=== PATIENT | female | born 1950 | race Caucasian/White ===

== ENCOUNTER 2020-09-26 09:51 | Outpatient (REF) | payer MEDICARE, MEDICAID, SELFPAY ==
--- NOTE | 2020-09-26 09:57 | MM_ITS ---
EXAMINATION: MM SCREENING DIGITAL BREAST TOMOSYNTHESIS, BILATERAL CLINICAL INFORMATION: Screening. Asymptomatic. The lifetime risk of breast cancer based on the Tyrer-Cuzick Model is 6%. COMPARISON: Mammography: 09/21/2019, 09/06/2018, 08/01/2017, 07/18/2016 TECHNIQUE: Digital breast tomosynthesis is performed in both the craniocaudal and mediolateral oblique views along with computer-aided detection (CAD). Synthesized 2D images are generated from the tomosynthesis. FINDINGS: There are scattered areas of fibroglandular density (ACR BI-RADS breast composition Category b). There are no significant masses, abnormal calcifications, or other abnormalities. Small low right axillary tail node again seen MLO view similar to prior studies. Skin contours are smooth. No significant changes. MM/MM tomosynthesis screening BI IMPRESSION: No mammographic evidence of malignancy. ASSESSMENT: BI-RADS 2: Benign RECOMMENDATION: Routine annual mammography screening. This patient's information was entered into a reminder system with a target due date for their next mammogram.
== END 2020-09-26 09:52 | disposition home or self-care (01) ==
LOC: HO.MAMMO 09:51
PROVIDERS: PCP Hospitalist; Visit Provider Hospitalist
DX: Z12.31 Encounter for screening mammogram for malignant neoplasm of breast (principal)
CPT/HCPCS: 77063; 77067

== ENCOUNTER 2020-11-18 08:00 | Outpatient (REF) | payer MEDICARE, MEDICAID, SELFPAY ==
[2020-11-18 09:29] LABS: Hematocrit 39.8 % (37-47); Hemoglobin 13.2 g/dl (12.0-16.0); Mean Corpuscular HGB Conc 33.2 g/dl (31.0-35.0); Mean Corpuscular Hemoglobin 31.7 pg (27.0-33.0); Mean Corpuscular Volume 95.4 fL (80-98); Mean Platelet Volume 10.2 fL (9.4-12.3); Platelet Count 217 X10*3/uL (160-400); Red Blood Count 4.17 X10*6/uL (4.20-5.50); Red Cell Distribution Width 12.8 % (11.0-16.0); White Blood Count 7.4 X10*3/uL (4.8-10.8)
== END 2020-11-18 08:01 | disposition home or self-care (01) ==
LOC: HO.LAB 08:00
PROVIDERS: PCP Hospitalist; Visit Provider Hospitalist
DX: D50.9 Iron deficiency anemia, unspecified (principal)
CPT/HCPCS: 36415; 85027

== ENCOUNTER 2021-07-06 07:12 | Outpatient (REF) | payer MEDICARE, MEDICAID, SELFPAY ==
[2021-07-06 07:55] LABS: Hematocrit 40.8 % (37-47); Hemoglobin 13.7 g/dl (12.0-16.0); Mean Corpuscular HGB Conc 33.6 g/dl (31.0-35.0); Mean Corpuscular Hemoglobin 32.9 pg (27.0-33.0); Mean Corpuscular Volume 98.1 fL (80-98); Mean Platelet Volume 10.8 fL (9.4-12.3); Platelet Count 183 X10*3/uL (160-400); Red Blood Count 4.16 X10*6/uL (4.20-5.50); Red Cell Distribution Width 12.6 % (11.0-16.0)
[2021-07-06 08:20] LABS: Alanine Aminotransferase 63 U/L (0-31); Albumin Level 4.2 g/dL (3.5-5.0); Alkaline Phosphatase 132 U/L (39-117); Anion Gap 13 (12-20); Aspartate Amino Transferase 58 U/L (5-31); Bilirubin Direct 0.3 mg/dL (0.0-0.5); Bilirubin Total 0.8 mg/dL (0.0-1.0); Blood Urea Nitrogen 24 mg/dL (9-16); Calcium 10.1 mg/dL (8.4-10.2); Carbon Dioxide 22 mmol/L (22-29); Chloride 106 mmol/L (96-108); Cholesterol 172 mg/dL; Estimated Glomerular Filt Rate > 60; Glucose Fasting 119 mg/dL (60-99); HDL Cholesterol 69 mg/dL; LDL Cholesterol Calculated 90 mg/dl; Potassium 4.3 mmol/L (3.3-5.1); Sodium 137 mmol/L (135-145); Total Protein 7.8 g/dL (6.5-8.0); Triglycerides 65 mg/dL
[2021-07-06 08:42] LABS: TSH reflex Free T4 5.07 uIU/mL (0.32-4.0)
[2021-07-06 09:15] LABS: Free T4 (Free Thyroxine) 1.14 ng/dL (0.71-1.85)
== END 2021-07-06 07:13 | disposition home or self-care (01) ==
LOC: HO.LAB 07:12
PROVIDERS: PCP Hospitalist; Visit Provider Hospitalist
DX: Z00.00 Encounter for general adult medical examination without abnormal findings (principal)
CPT/HCPCS: 36415; 80048; 80061; 80076; 84439; 84443; 85027

== ENCOUNTER 2021-07-13 08:15 | Outpatient (REF) | payer MEDICARE, MEDICAID, SELFPAY ==
[2021-07-13 12:05] LABS: Hematocrit 40.3 % (37-47); Hemoglobin 13.6 g/dl (12.0-16.0); Mean Corpuscular HGB Conc 33.7 g/dl (31.0-35.0); Mean Corpuscular Hemoglobin 33.2 pg (27.0-33.0); Mean Corpuscular Volume 98.3 fL (80-98); Mean Platelet Volume 10.9 fL (9.4-12.3); Platelet Count 213 X10*3/uL (160-400); Red Cell Distribution Width 12.4 % (11.0-16.0); White Blood Count 8.2 X10*3/uL (4.8-10.8)
[2021-07-13 12:26] LABS: Alanine Aminotransferase 43 U/L (0-31); Albumin Level 4.1 g/dL (3.5-5.0); Alkaline Phosphatase 104 U/L (39-117); Anion Gap 15 (12-20); Aspartate Amino Transferase 45 U/L (5-31); Bilirubin Direct 0.3 mg/dL (0.0-0.5); Bilirubin Total 0.6 mg/dL (0.0-1.0); Blood Urea Nitrogen 22 mg/dL (9-16); Calcium 9.9 mg/dL (8.4-10.2); Carbon Dioxide 23 mmol/L (22-29); Chloride 108 mmol/L (96-108); Estimated Glomerular Filt Rate > 60; Glucose Fasting 107 mg/dL (60-99); Potassium 5.1 mmol/L (3.3-5.1); Sodium 141 mmol/L (135-145); Total Protein 7.7 g/dL (6.5-8.0)
== END 2021-07-13 08:16 | disposition home or self-care (01) ==
LOC: HO.WFDLDS 08:15
PROVIDERS: Visit Provider Hospitalist
DX: Z00.00 Encounter for general adult medical examination without abnormal findings (principal)
CPT/HCPCS: 36415; 80053; 80076; 82248; 85027

== ENCOUNTER 2021-10-12 07:03 | Outpatient (REF) | payer MEDICARE, MEDICAID, SELFPAY ==
[2021-10-12 08:00] LABS: Anion Gap 12 (12-20); Blood Urea Nitrogen 22 mg/dL (9-16); Calcium 10.1 mg/dL (8.4-10.2); Carbon Dioxide 27 mmol/L (22-29); Chloride 107 mmol/L (96-108); Estimated Glomerular Filt Rate > 60; Glucose Fasting 127 mg/dL (60-99); Potassium 4.5 mmol/L (3.3-5.1); Sodium 141 mmol/L (135-145)
[2021-10-12 08:02] LABS: Troponin-I High Sensitivity 4.4 ng/L (<3.5-17.0)
== END 2021-10-12 07:04 | disposition home or self-care (01) ==
LOC: HO.LAB 07:03
PROVIDERS: Absent Provider Family Medicine; PCP Hospitalist; Visit Provider Hospitalist
DX: Z00.00 Encounter for general adult medical examination without abnormal findings (principal); R00.1 Bradycardia, unspecified
CPT/HCPCS: 36415; 80048; 84484

== ENCOUNTER 2021-10-28 07:26 | Outpatient (REF) | payer MEDICARE, MEDICAID, SELFPAY ==
--- NOTE | ~2021-10-28 | MM_ITS ---
EXAMINATION: MM SCREENING DIGITAL BREAST TOMOSYNTHESIS, BILATERAL CLINICAL INFORMATION: Screening. Asymptomatic. The lifetime risk of breast cancer based on the Tyrer-Cuzick Model is 4%. COMPARISON: Mammography: 09/26/2020, 09/21/2019, 09/06/2018 TECHNIQUE: Digital breast tomosynthesis is performed in both the craniocaudal and mediolateral oblique views along with computer-aided detection (CAD). Synthesized 2D images are generated from the tomosynthesis. Additional left MLO view is provided. FINDINGS: There are scattered areas of fibroglandular density (ACR BI-RADS breast composition Category b). There are no significant masses, abnormal calcifications, or other abnormalities. No significant changes from prior studies. MM/MM tomosynthesis screening BI IMPRESSION: No mammographic evidence of malignancy. ASSESSMENT: BI-RADS 1: Negative RECOMMENDATION: Routine annual mammography screening. This patient's information was entered into a reminder system with a target due date for their next mammogram.
== END 2021-10-28 07:27 | disposition home or self-care (01) ==
LOC: HO.MAMMO 07:26
PROVIDERS: Visit Provider Hospitalist
DX: Z12.31 Encounter for screening mammogram for malignant neoplasm of breast (principal)
CPT/HCPCS: 77063; 77067

== ENCOUNTER 2022-04-08 06:28 | Outpatient (REF) | payer MEDICARE, MEDICAID, SELFPAY ==
[2022-04-08 07:54] LABS: Cholesterol 165 mg/dL; HDL Cholesterol 59 mg/dL; LDL Cholesterol Calculated 96 mg/dl; Triglycerides 52 mg/dL
[2022-04-08 08:11] LABS: Estimated Average Glucose 123 mg/dL; Hemoglobin A1c % 5.9 %
[2022-04-08 08:18] LABS: TSH reflex Free T4 3.89 uIU/mL (0.32-4.0)
== END 2022-04-08 06:29 | disposition home or self-care (01) ==
LOC: HO.LAB 06:28
PROVIDERS: PCP Hospitalist; Visit Provider Hospitalist
DX: E03.9 Hypothyroidism, unspecified (principal); I10 Essential (primary) hypertension; E11.9 Type 2 diabetes mellitus without complications
CPT/HCPCS: 36415; 80061; 83036; 84443

== ENCOUNTER 2022-08-16 07:56 | Outpatient (REF) | payer MEDICARE, MEDICAID, SELFPAY ==
[2022-08-16 10:36] LABS: Appearance Urine Clear; Color Urine Yellow; Glucose Urine UA Negative (Negative); Leukocyte Esterase Urine Trace (Negative); Nitrite Urine Negative (Negative); PH 6.5 (5.0-9.0); UMIC TRIGGER UA YES; Urine Blood Negative (Negative); Urine Ketones Negative (Negative); Urine Protein Negative (Neg-Trace)
[2022-08-16 10:44] LABS: Bacteria Urine None Seen (None Seen); Hyaline Casts Urine 0-2 /LPF (0-2); RBC Urine 0-2 /HPF (0-2); Squamous Epithelial Cell Urine 0-2 /HPF (0-2); WBC Urine 0-5 /HPF (0-5)
[2022-08-16 10:46] LABS: Hematocrit 40.2 % (37.0-47.0); Hemoglobin 13.3 g/dl (12.0-16.0); Mean Corpuscular HGB Conc 33.1 g/dl (31.0-35.0); Mean Corpuscular Hemoglobin 32.4 pg (27.0-33.0); Mean Platelet Volume 10.8 fL (9.4-12.3); Platelet Count 208 X10*3/uL (160-400); Red Cell Distribution Width 12.1 % (11.0-16.0); White Blood Count 9.3 X10*3/uL (4.8-10.8)
[2022-08-16 11:21] LABS: Alanine Aminotransferase 48 U/L (0-31); Albumin Level 4.1 g/dL (3.5-5.0); Alkaline Phosphatase 109 U/L (39-117); Anion Gap 13 (12-20); Aspartate Amino Transferase 41 U/L (5-31); Bilirubin Total 0.6 mg/dL (0.0-1.0); Blood Urea Nitrogen 19 mg/dL (9-16); Carbon Dioxide 25 mmol/L (22-29); Chloride 103 mmol/L (96-108); Cholesterol 162 mg/dL; Estimated Glomerular Filt Rate > 60; Glucose Fasting 129 mg/dL (60-99); HDL Cholesterol 65 mg/dL; LDL Cholesterol Calculated 88 mg/dl; Potassium 4.2 mmol/L (3.3-5.1); Sodium 137 mmol/L (135-145); TSH reflex Free T4 3.82 uIU/mL (0.32-4.0); Total Protein 7.6 g/dL (6.5-8.0); Triglycerides 49 mg/dL
== END 2022-08-16 07:57 | disposition home or self-care (01) ==
LOC: HO.10HDL 07:56
PROVIDERS: Visit Provider Hospitalist
DX: Z00.00 Encounter for general adult medical examination without abnormal findings (principal)
CPT/HCPCS: 36415; 80053; 80061; 81001; 84443; 85027

== ENCOUNTER 2022-09-27 09:27 | Outpatient (REF) | payer MEDICARE, MEDICAID, SELFPAY ==
[2022-09-27 13:27] LABS: Alanine Aminotransferase 45 U/L (0-31); Albumin Level 4.4 g/dL (3.5-5.0); Alkaline Phosphatase 106 U/L (39-117); Aspartate Amino Transferase 44 U/L (5-31); Bilirubin Direct 0.2 mg/dL (0.0-0.5); Bilirubin Total 0.5 mg/dL (0.0-1.0); Total Protein 7.9 g/dL (6.5-8.0)
== END 2022-09-27 09:28 | disposition home or self-care (01) ==
LOC: HO.10HDL 09:27
PROVIDERS: Visit Provider Hospitalist
DX: R79.89 Other specified abnormal findings of blood chemistry (principal)
CPT/HCPCS: 36415; 80076

== ENCOUNTER 2022-11-01 08:06 | Outpatient (REF) | payer MEDICARE, MEDICAID, SELFPAY ==
--- NOTE | ~2022-11-01 | MM_ITS ---
EXAMINATION: MM SCREENING DIGITAL BREAST TOMOSYNTHESIS, BILATERAL CLINICAL INFORMATION: Screening. Asymptomatic. The lifetime risk of breast cancer based on the Tyrer-Cuzick Model is 4.0%. COMPARISON: Mammography: October 28, 2021 and studies dating back to July 18, 2016 TECHNIQUE: Digital breast tomosynthesis is performed in both the craniocaudal and mediolateral oblique views along with computer-aided detection (CAD). Synthesized 2D images are generated from the tomosynthesis. FINDINGS: There are scattered areas of fibroglandular density (ACR BI-RADS breast composition Category b). There are no significant masses, abnormal calcifications, or other abnormalities. MM/MM tomosynthesis screening BI IMPRESSION: No significant changes ASSESSMENT: BI-RADS 1: Negative RECOMMENDATION: Routine annual mammography screening. This patient's information was entered into a reminder system with a target due date for their next mammogram.
== END 2022-11-01 08:07 | disposition home or self-care (01) ==
LOC: HO.MAMMO 08:06
PROVIDERS: PCP Hospitalist; Visit Provider Hospitalist
DX: Z12.31 Encounter for screening mammogram for malignant neoplasm of breast (principal)
CPT/HCPCS: 77063; 77067

== ENCOUNTER 2023-04-25 08:28 | Outpatient (AMB) | payer MEDICARE, MEDICAID, SELFPAY ==
[2023-04-25 08:40] VITALS: BP 116/64; PULSE 36; RESP 12; TEMP 36.5; O2SAT 99; BMI 19.5
--- NOTE | 2023-04-25 08:40 | A.OFFPC_ITS ---
Vital Signs 04/25/23 08:40 Height 4 ft 8 in Weight 87 lb 2 oz BMI 19.5 BP 116/64 Blood Pressure Location Rt brachial Position Sitting Respiration 12 Pulse 36 L Pulse Source Pulse Oximeter Temp 97.7 F Temp Source Temporal Artery Scan Pulse Oximetry (%) 99 Oxygen Delivery Method Room Air Intake Visit Reasons: 6M Follow up for hypothyroidiem & HTN Meter Changes Records Clerk Required: No Accompanied by: Sister Allergies No Known Allergies Allergy (Verified 04/25/23 08:48) Tobacco use date assessed: 04/25/23 Fall risk assessment: No Falls in past year Last assessed Fall Risk: 04/25/23 Dental Screening Dental Screen Date: 04/25/23 Did you have a dental visit in the last 12 months?: No Did you have a dental problem in the last 6 months where you did not have access to dental care?: No Was dental information given to patient?: Yes HPI HPI Comments History of Present Illness Details 72-year-old female, accompanied by her sister, presents for hypertension and hypothyroidism follow-up She notes that she has been taking her medications as prescribed No concerns or acute symptoms PFSH Medical History No pertinent past medical history Surgical History History of tonsillectomy and adenoidectomy Family History Father No problems noted. Mother Lung cancer Sister In good health Social History Housing: House Patient Tobacco Use Status: Never used Tobacco e-Cigarette/Vaping Use: Never Used service: No Current occupational status: retired Current occupational exposures/hazards: No Cognitive needs: Yes Hearing needs: No Vision needs: Yes Questionnaire PHQ-9 Over the last 2 weeks, how often have you been bothered by any of the following problems? 1. Little interest or pleasure in doing things: not at all 2. Feeling down, depressed, or hopeless: not at all 3. Trouble falling or staying asleep, or sleeping too much: not at all 4. Feeling tired or having little energy: several days 5. Poor appetite or overeating: not at all 6. Feeling bad about yourself - or that you are a failure or have let yourself or your family down: not at all 7. Trouble concentrating on things, such as reading the newspaper or watching television: several days 8. Moving or speaking so slowly that other people could have noticed. Or the opposite - being so fidgety or restless that you have been moving around a lot more than usual: not at all 9. Thoughts that you would be better off or of hurting yourself in some way: not at all Total score: 2 Depression Screening Interpretation: Negative Source: Developed by Drs. Leonid Oseguera, Lorena Caceres, Richard Leahy and colleagues, with an educational casey from [employer]. Thrive Questionnaire Date Thrive assessed: 04/25/23 I am a: Patient What is your living situation today?: I have a steady place to live Within the past 12 months, did the food you bought not last and you didn't have the money to get more?: Never true Within the past 12 months, did you worry whether your food would run out before you got money to buy more?: Never true Do you have trouble paying for medicines?: No Do you have trouble getting transportation to medical appointments?: No Do you have trouble paying your heating and electricity bill?: No Do you have trouble taking care of your child, family member or friend?: No Do you have trouble with day-to-day activities such as bathing, preparing meals, shopping, managing finances, etc.?: No Are you currently unemployed and looking for a job?: No Are you interested in more education?: No Please select the resources that you would like help with: None AUDIT C Alcohol Use Questionnaire (AUDIT-C) 1. How often do you have a drink containing alcohol?: Never 3. How often do you have six or more drinks on one occasion?: Never Total Score: 0 CARLOS-7 AMB Questionnaire CARLOS-7 Date CARLOS - 7 assessed: 04/25/23 Feeling nervous, anxious, or on edge: 1 = Several days Not being able to stop or control worryin = Several days Worrying too much about different things: 0 = Not at all Trouble relaxin = Not at all Being so restless that it is hard to sit still: 0 = Not at all Becoming easily annoyed or irritable: 0 = Not at all Feeling afraid as if something awful might happen: 0 = Not at all Total CARLOS-7 score (0-4 normal; 5-9 mild; 10-14 moderate; 15-21 severe): 2 Source: Developed by Drs. Leonid Oseguera, Lorena Caceres, Richard Leahy and colleagues, with an educational casey from [employer]. Review of Systems Const Details: Const Denies chills, Denies fatigue, Denies fever(s), Denies headache(s) and Denies weakness ENT Denies dizziness and Denies headache(s) Card Denies chest pain, Denies lightheadedness, Denies dyspnea and Denies other (Palpitations) Resp Denies cough, Denies dyspnea, Denies wheezing and Denies other ( shortness of breath) GI Denies abdominal pain, Denies melena, Denies hematochezia, Denies change in bowel habits, Denies dyspepsia and Denies nausea Denies hematuria and Denies dysuria Musc Denies abnormal gait, Denies myalgias, Denies arthralgias, Denies numbness and Denies tingling Skin/Breast Denies rash, Denies unusual bruising and Denies wounds Neuro Denies abnormal gait, Denies dizziness, Denies headache(s), Denies memory loss, Denies numbness, Denies Sensory deficit (Neuro), Denies tingling and Denies weakness Psych Denies anxiety and Denies depression Endo Denies fatigue Aller/Immun Denies wheezing Physical exam (Primary Care) Vital Signs: Last Vital Signs Temp 97.7 F 04/25/23 08:40 Pulse 36 L 04/25/23 08:40 Resp 12 04/25/23 08:40 BP 116/64 04/25/23 08:40 Pulse Ox 99 04/25/23 08:40 Oxygen Delivery Method Room Air 04/25/23 08:40 BMI result Body Mass Index 19.5 Tobacco/Smoking Status: Tobacco use Status Tobacco use date assessed 04/25/23 04/25/23 08:51 Patient Tobacco Use Status Never used Tobacco 04/25/23 08:51 e-Cigarette/Vaping Use Never Used 04/25/23 08:51 PHQ-9: PHQ-9 Score PHQ-9: Total score 2 04/25/23 11:11 Depression Screening Interpretation: Negative Thrive Assessment: Date of Thrive Assessment Date Thrive assessed 04/25/23 04/25/23 08:51 Const Other: General: no acute distress and well developed Nutritional Appearance: well nourished Orientation/consciousness: patient oriented x3 [facility] Head: Yes normocephalic and Yes atraumatic Eyes General: appearance normal, both eyes and all related structures Pupils: Equal, round and reactive pupils present EOM: EOMs intact bilaterally Resp Effort & Inspection: normal respiratory effort Auscultation: clear to auscultation bilaterally Cardio Rate: regular rate Rhythm: regular rhythm Heart sounds: S1 normal heart sound present, S2 normal heart sound present, no gallops, no murmurs and no rubs GI Palpation (GI): No Abdominal aortic bruit present, Soft to palpation, nontender, No hepatosplenomegaly present and No Rebound tenderness present Auscultation: normal bowel sounds General: Yes no CVA tenderness Back/Spine/Pelvis Back: no CVA tenderness Cervical Spine: cervical ROM normal and No Cervical spine tenderness Thoracic/Lumbar Spine: thoraco-lumbar ROM normal, No pain with thoraco-lumbar ROM, No thoracic spinal tenderness and No lumbar spinal tenderness Extrem General: Yes normal to inspection, No edema and No calf tenderness Skin General: warm and dry. Normal skin color. Normal skin turgor Lesions: no lesions Rashes: no rashes Trauma: no lacerations or abrasions Wounds: no wounds Nails: normal Neuro General: patient oriented x3, gait normal and no focal neuro deficit Cranial nerves: Yes Equal, round and reactive pupils present Cognition (Neuro): normal cognition Gait exam (Neuro): Normal gait present Sensory Exam: No Sensory deficit (Neuro) Psych Affect: normal affect Assessment and Plan Assessment & Plan (1) Hypertension, essential: Code(s): I10 - Essential (primary) hypertension Plan: Her blood pressure is controlled, 116/64, within goal of less than 130/80 Continue to take lisinopril as prescribed Low-sodium diet encouraged Follow-up with PCP in 6 months or return sooner with symptoms or concerns Verbalized understanding and agreed with treatment plan. (2) Hypothyroidism (acquired): Code(s): E03.9 - Hypothyroidism, unspecified Plan: Her TSH in August 2022 was normal, 3.82 TSH/T4 ordered. Encouraged to get blood work done Continue to take levothyroxine as prescribed Will review lab results and make changes to her care plan if warranted Verbalized understanding and agreed with treatment plan. (3) Well controlled type 2 diabetes mellitus: Code(s): E11.9 - Type 2 diabetes mellitus without complications Plan: A1c ordered LDL on 08/2023 was 65, within goal of less than 100 Continue to take metformin and simvastatin as prescribed ADA diet and routine exercise encouraged Will review results and make changes to her care plan if warranted Follow-up with PCP in 6 months or return sooner with symptoms or concerns Verbalized understanding and agreed with treatment plan Orders: Orders TSH reflex Free T4 Today E03.9 - Hypothyroidism, unspecified Hemoglobin A1c Today E11.9 - Type 2 diabetes mellitus without complications Coding Level of Care Code Est Pt Level 3 (58909) Diagnoses Hypertension, essential I10 Hypothyroidism (acquired) E03.9 Well controlled type 2 diabetes mellitus E11.9 Time Spent (min) 25
== END 2023-04-25 09:27 | disposition home or self-care (01) ==
PROVIDERS: PCP Hospitalist; Visit Provider Nurse Practitioner Family
DX: I10 Essential (primary) hypertension (principal); E03.9 Hypothyroidism, unspecified; E11.9 Type 2 diabetes mellitus without complications
CPT/HCPCS: 99213

== ENCOUNTER 2023-04-25 09:29 | Outpatient (REF) | payer MEDICARE, MEDICAID, SELFPAY ==
[2023-04-25 12:11] LABS: Estimated Average Glucose 114 mg/dL; Hemoglobin A1c % 5.6 %
[2023-04-25 12:34] LABS: TSH reflex Free T4 3.39 uIU/mL (0.32-4.0)
== END 2023-04-25 09:30 | disposition home or self-care (01) ==
LOC: HO.WFDLDS 09:29
PROVIDERS: Visit Provider Nurse Practitioner Family
DX: E03.9 Hypothyroidism, unspecified (principal); E11.9 Type 2 diabetes mellitus without complications
CPT/HCPCS: 36415; 83036; 84443

== ENCOUNTER 2023-09-22 08:21 | Outpatient (AMB) | payer MEDICARE, MEDICAID, SELFPAY ==
[2023-09-22 08:33] VITALS: BP 112/70; PULSE 40; O2SAT 100; BMI 20.6
--- NOTE | 2023-09-22 08:33 | A.OFFPC_ITS ---
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 Required: No Allergies No Known Allergies Allergy (Verified 09/22/23 08:41) Medication List - Last Reconciled 09/22/23 by QUIRINO Bennett aspirin 81 mg PO DAILY cholecalciferol (vitamin D3) 25 mcg PO DAILY levothyroxine 25 mcg PO DAILY lisinopril 5 mg PO DAILY metformin ER 750 mg PO DAILY 3 months multivitamin with iron (Tab-A-Joselo/Iron tablet) 1 tab PO DAILY omega-3 fatty acids-fish oil 300-1,000 mg 1 cap PO DAILY simvastatin 40 mg PO DAILY Tobacco use date assessed: 09/22/23 Fall risk assessment: No Falls in past year Last assessed Fall Risk: 09/22/23 Dental Screening Dental Screen Date: 09/22/23 Did you have a dental visit in the last 12 months?: No Did you have a dental problem in the last 6 months where you did not have access to dental care?: No HPI Integration Architect Transfer Of Care (HTN) HPI Details Patient is a 73-year-old female presents today to transfer care from Dr. Cullen. Medical history significant for hypertension, diabetes, hypothyroidism, low vitamin-D level. Patient reports that she is compliant with medications and denies side effects. Denies concerns at this visit. Patient is accompanied by her sister Jody. [facility] Medical History No pertinent past medical history Surgical History History of tonsillectomy and adenoidectomy Family History Father No problems noted. Mother Lung cancer Sister In good health Social History Housing: House Patient Tobacco Use Status: Never used Tobacco e-Cigarette/Vaping Use: Never Used service: No Current occupational status: retired Current occupational exposures/hazards: No Cognitive needs: Yes Hearing needs: No Vision needs: Yes Questionnaire PHQ-9 Over the last 2 weeks, how often have you been bothered by any of the following problems? 1. Little interest or pleasure in doing things: not at all 2. Feeling down, depressed, or hopeless: not at all 3. Trouble falling or staying asleep, or sleeping too much: not at all 4. Feeling tired or having little energy: several days 5. Poor appetite or overeating: not at all 6. Feeling bad about yourself - or that you are a failure or have let yourself or your family down: not at all 7. Trouble concentrating on things, such as reading the newspaper or watching television: several days 8. Moving or speaking so slowly that other people could have noticed. Or the opposite - being so fidgety or restless that you have been moving around a lot more than usual: not at all 9. Thoughts that you would be better off or of hurting yourself in some way: not at all Total score: 2 Depression Screening Interpretation: Negative Depression Screening Done: Yes 10910 - PHQ-9 Billing: Yes Source: Developed by Drs. Leonid Oseguera, Lorena Caceres, Richard Leahy and colleagues, with an educational casey from [employer]. Thrive Questionnaire Date Thrive assessed: 04/25/23 AUDIT C Alcohol Use Questionnaire (AUDIT-C) 1. How often do you have a drink containing alcohol?: Never 3. How often do you have six or more drinks on one occasion?: Never Total Score: 0 Score Reviewed/Action Taken: No CARLOS-7 AMB Questionnaire CARLOS-7 Date CARLOS - 7 assessed: 09/22/23 Feeling nervous, anxious, or on edge: 1 = Several days Not being able to stop or control worryin = Several days Worrying too much about different things: 0 = Not at all Trouble relaxin = Not at all Being so restless that it is hard to sit still: 0 = Not at all Becoming easily annoyed or irritable: 0 = Not at all Feeling afraid as if something awful might happen: 0 = Not at all Total CARLOS-7 score (0-4 normal; 5-9 mild; 10-14 moderate; 15-21 severe): 2 Source: Developed by Drs. Leonid Oseguera, Lorena Caceres, Richard Leahy and colleagues, with an educational casey from [employer]. CARLOS-7 Assessment Billing CARLOS-7 Assessment Tool: CARLOS-7 Assessment 14200 Review of Systems Const Denies body aches, Denies chills, Denies fever(s) and Denies headache(s) Eyes Denies change in vision ENT Denies dizziness, Denies otalgia, Denies headache(s), Denies nasal discharge, Denies sinus pain and Denies sore throat Card Denies chest pain, Denies edema, Denies lightheadedness and Denies dyspnea Resp Denies cough, Denies dyspnea and Denies wheezing GI Denies abdominal pain, Denies constipation, Denies diarrhea, Denies nausea and Denies vomiting Denies dysuria Musc Denies myalgias Skin/Breast Denies rash Neuro Denies dizziness and Denies headache(s) Aller/Immun Denies wheezing Physical exam (Primary Care) Vital Signs: Last Vital Signs Pulse 40 L 09/22/23 08:33 BP 112/70 09/22/23 08:33 Pulse Ox 100 09/22/23 08:33 Oxygen Delivery Method Room Air 09/22/23 08:33 BMI result Body Mass Index 20.6 Tobacco/Smoking Status: Tobacco use Status Tobacco use date assessed 09/22/23 09/22/23 08:36 Patient Tobacco Use Status Never used Tobacco 09/22/23 08:36 e-Cigarette/Vaping Use Never Used 09/22/23 08:36 PHQ-9: PHQ-9 Score PHQ-9: Total score 2 09/22/23 08:41 Depression Screening Interpretation: Negative Thrive Assessment: Date of Thrive Assessment Date Thrive assessed 04/25/23 09/22/23 08:36 Const General: cooperative and no acute distress Orientation/consciousness: patient oriented x3 HENMT Other: Bilateral TM partially obstructed by cerumen, visualized TMs normal Head: Yes normocephalic and Yes atraumatic Face and sinus: Yes sinuses nontender Mouth: oropharynx normal and moist mucous membranes Throat: Yes posterior oropharynx normal Eyes General: appearance normal, both eyes and all related structures Pupils: Equal, round and reactive pupils present EOM: EOMs intact bilaterally Neck Neck: Yes normal visual inspection, Yes full ROM and Yes no lymphadenopathy Thyroid: Thyroid normal Resp Effort & Inspection: normal respiratory effort and able to speak in complete sentences Auscultation: clear to auscultation bilaterally, no crackles, no rales, no rhonchi and no wheezes Cardio Rate: regular rate Rhythm: regular rhythm Heart sounds: S1 normal heart sound present, S2 normal heart sound present and no murmurs GI Palpation (GI): Soft to palpation, not firm, nontender, no guarding, not rigid and no hepatosplenomegaly Auscultation: normal bowel sounds General: No CVA tenderness Back/Spine/Pelvis Back: No CVA tenderness Skin General skin exam: no rashes or lesions noted Neuro General: patient oriented x3 Cranial nerves: Yes Equal, round and reactive pupils present Gait exam (Neuro): Normal gait present Extrem Other: Left lower extremity with trace edema General: Yes full ROM Results AMB Hemoglobin A1c AMB Hemoglobin A1c 6.1 % Last Edit by MAYCO Astudillo on 09/22/23 08:49 Assessment and Plan Assessment & Plan (1) Vitamin D deficiency: Code(s): E55.9 - Vitamin D deficiency, unspecified Plan: Continue vitamin-D Will check level (2) Hypothyroidism (acquired): Code(s): E03.9 - Hypothyroidism, unspecified Plan: Continue levothyroxine Blood work ordered (3) Well controlled type 2 diabetes mellitus: Code(s): E11.9 - Type 2 diabetes mellitus without complications Plan: A1c 6.1 today, goal less than 7 Continue metformin Low-carbohydrate diet Patient will call for diabetic eye exam (4) Hypertension, essential: Code(s): I10 - Essential (primary) hypertension Plan: Goal BP equal or less than 140/90 Continue lisinopril Low-sodium diet Plan Follow-up in 6 months or sooner as needed Orders: Orders AMB Hemoglobin A1c Today Z13.9 - Encounter for screening, unspecified QUIRINO Bennett Lipid Panel Today E11.9 - Type 2 diabetes mellitus without complications QUIRINO Bennett Microalbumin, Random (w Creat) Today E11.9 - Type 2 diabetes mellitus without complications QUIRINO Bennett Vitamin D 25-OH Total Today E55.9 - Vitamin D deficiency, unspecified QUIRINO Bennett TSH reflex Free T4 Today E03.9 - Hypothyroidism, unspecified QUIRINO Bennett Comprehensive [place]. Panel Fast Today E11.9 - Type 2 diabetes mellitus without complications QUIRINO Bennett Complete Blood Count Auto Diff Today I10 - Essential (primary) hypertension QUIRINO Bennett Medications: Resumed simvastatin 40 mg PO DAILY 90 tabs 2RF I10 - Essential (primary) hypertension Mikey Vargas MD Coding Level of Care Code Est Pt Level 4 (19473) Diagnoses Vitamin D deficiency E55.9 Hypothyroidism (acquired) E03.9 Well controlled type 2 diabetes mellitus E11.9 Hypertension, essential I10 Additional Codes CARLOS-7 Assessment Billing - CARLOS-7 Assessment Tool: CARLOS-7 Assessment 57874 ([id number])
[2023-09-22 08:54] VITALS: PULSE 44
== END 2023-09-22 08:59 | disposition home or self-care (01) ==
PROVIDERS: PCP Hospitalist; Visit Provider Nurse Practitioner Family
DX: E55.9 Vitamin D deficiency, unspecified (principal); E03.9 Hypothyroidism, unspecified; E11.9 Type 2 diabetes mellitus without complications; I10 Essential (primary) hypertension
CPT/HCPCS: 83036; 99214

== ENCOUNTER 2023-11-04 07:39 | Outpatient (REF) | payer MEDICARE, MEDICAID, SELFPAY ==
--- NOTE | ~2023-11-04 | MM_ITS ---
EXAMINATION: MM SCREENING DIGITAL BREAST TOMOSYNTHESIS, BILATERAL CLINICAL INFORMATION: Screening. Asymptomatic. COMPARISON: Mammography: This study is compared with prior exams dating back to 2016. TECHNIQUE: Digital breast tomosynthesis is performed in both the craniocaudal and mediolateral oblique views along with computer-aided detection (CAD). Synthesized 2D images are generated from the tomosynthesis. FINDINGS: There are scattered areas of fibroglandular density (ACR BI-RADS breast composition Category b). There are no significant masses, abnormal calcifications, or other abnormalities. MM/MM tomosynthesis screening BI IMPRESSION: No mammographic evidence of malignancy. ASSESSMENT: BI-RADS BI-RADS 1 - Negative RECOMMENDATION: Routine annual mammography screening. 1 year F/U This examination should not preclude the clinical evaluation of a suspicious palpable abnormality. This patient's information was entered into a reminder system with a target due date for their next mammogram.
== END 2023-11-04 07:40 | disposition home or self-care (01) ==
LOC: HO.MAMMO 07:39
PROVIDERS: PCP Nurse Practitioner Family; Visit Provider Nurse Practitioner Family
DX: Z12.31 Encounter for screening mammogram for malignant neoplasm of breast (principal)
CPT/HCPCS: 77063; 77067

== ENCOUNTER → 2023-11-04 07:45 | Outpatient (BNV) | payer MEDICARE, MEDICAID, SELFPAY | PROVIDERS: PCP Nurse Practitioner Family; Visit Provider Radiology Diagnostic Radiology | DX: Z12.31 Encounter for screening mammogram for malignant neoplasm of breast (principal) | CPT/HCPCS: 77063; 77067 ==

== ENCOUNTER 2024-02-14 07:54 | Outpatient (AMB) | payer MEDICARE, MEDICAID, SELFPAY ==
[2024-02-14 07:57] VITALS: BP 110/70; BMI 20.7
--- NOTE | 2024-02-14 07:57 | MHC.PC.OV ---
Vital Signs 02/14/24 07:57 Height 4 ft 8 in Weight 92 lb 4 oz BMI 20.7 BP 110/70 Blood Pressure Location Lt brachial Position Sitting Intake Visit Reasons: Trans. from [place] [facility] F/U Intake Note: Patient here transferring of care, DM Career Development Consultant Required: No Accompanied by: Sister Allergies No Known Allergies Allergy (Verified 02/14/24 08:05) Medication List - Last Reconciled 02/14/24 by Yenni Bentley MD aspirin 81 mg PO DAILY cholecalciferol (vitamin D3) 25 mcg PO DAILY levothyroxine 25 mcg PO DAILY lisinopril 5 mg PO DAILY metformin ER 750 mg PO DAILY 3 months multivitamin with iron (Tab-A-Joselo/Iron tablet) 1 tab PO DAILY omega-3 fatty acids-fish oil 300-1,000 mg 1 cap PO DAILY simvastatin 40 mg PO DAILY Tobacco use date assessed: 02/14/24 Fall risk assessment: No Falls in past year Last assessed Fall Risk: 02/14/24 Dental Screening Dental Screen Date: 02/14/24 Did you have a dental visit in the last 12 months?: No Did you have a dental problem in the last 6 months where you did not have access to dental care?: No Was dental information given to patient?: Patient has dentist HPI HPI Comments History of Present Illness Details This is a 73-year-old female with diabetes mellitus type 2, hypertension, hypothyroidism, dyslipidemia and low vitamin-D that comes today accompanied by sister Jody for follow-up on her conditions. Blood pressure stable. A1c within goal. TSH and lipid panel will be order and her LDL goal should be less than 70. On vitamin-D supplements for her low vitamin-D and vitamin-D levels will also be ordered. Denies any chest pain or shortness of breath. Lives with her brother due to mild developmental delay. Doing well. Compliant with medications. Last colonoscopy was 2011 which was normal and a Cologuard will be preferred by family members. [facility] Medical History (Updated 02/14/24 @ 08:54 by Yenni Bentley MD) No pertinent past medical history Surgical History History of tonsillectomy and adenoidectomy Family History (Updated 02/14/24 @ 08:15 by Yenni Bentley MD) Father Multiple myeloma Mother Lung cancer Sister In good health Social History (Updated 02/14/24 @ 08:16 by Yenni Bentley MD) Housing: House Alcohol intake: current Alcohol intake frequency: holidays/special occasions only Alcohol type: wine and hard liquor Patient Tobacco Use Status: Never used Tobacco e-Cigarette/Vaping Use: Never Used Second Hand Smoke Exposure: No service: No Current occupational status: retired Current occupational exposures/hazards: No Cognitive needs: Yes Hearing needs: No Vision needs: Yes Questionnaire PHQ-9 Over the last 2 weeks, how often have you been bothered by any of the following problems? 1. Little interest or pleasure in doing things: not at all 2. Feeling down, depressed, or hopeless: not at all 3. Trouble falling or staying asleep, or sleeping too much: not at all 4. Feeling tired or having little energy: not at all 5. Poor appetite or overeating: not at all 6. Feeling bad about yourself - or that you are a failure or have let yourself or your family down: not at all 7. Trouble concentrating on things, such as reading the newspaper or watching television: not at all 8. Moving or speaking so slowly that other people could have noticed. Or the opposite - being so fidgety or restless that you have been moving around a lot more than usual: not at all 9. Thoughts that you would be better off or of hurting yourself in some way: not at all Total score: 0 Depression Screening Interpretation: Negative Depression Screening Done: Yes 41685 - PHQ-9 Billing: Yes Source: Developed by Drs. Leonid Oseguera, Lorena Caceres, Richard Leahy and colleagues, with an educational casey from [employer]. Thrive Questionnaire Date Thrive assessed: 02/14/24 I am a: Patient What is your living situation today?: I have a steady place to live Within the past 12 months, did the food you bought not last and you didn't have the money to get more?: Never true Within the past 12 months, did you worry whether your food would run out before you got money to buy more?: Never true Do you have trouble paying for medicines?: No Do you have trouble getting transportation to medical appointments?: No Do you have trouble paying your heating and electricity bill?: No Do you have trouble taking care of your child, family member or friend?: No Do you have trouble with day-to-day activities such as bathing, preparing meals, shopping, managing finances, etc.?: No Are you currently unemployed and looking for a job?: No Are you interested in more education?: No Please select the resources that you would like help with: None Currently or been in a relationship where the following occur: no concerns reported THRIVE Score: 0 AUDIT C Alcohol Use Questionnaire (AUDIT-C) 1. How often do you have a drink containing alcohol?: Never Total Score: 0 Score Reviewed/Action Taken: No CARLOS-7 AMB Questionnaire CARLOS-7 Date CARLOS - 7 assessed: 02/14/24 Feeling nervous, anxious, or on edge: 0 = Not at all Not being able to stop or control worryin = Not at all Worrying too much about different things: 0 = Not at all Trouble relaxin = Not at all Being so restless that it is hard to sit still: 0 = Not at all Becoming easily annoyed or irritable: 0 = Not at all Feeling afraid as if something awful might happen: 0 = Not at all Total CARLOS-7 score (0-4 normal; 5-9 mild; 10-14 moderate; 15-21 severe): 0 Source: Developed by Drs. Leonid Oseguear, Lorena Caceres, Richard Leahy and colleagues, with an educational casey from [employer]. CARLOS-7 Assessment Billing CARLOS-7 Assessment Tool: CARLOS-7 Assessment 41721 Review of Systems Const All systems reviewed & are unremarkable except as noted in HPI and below Card Denies chest pain at rest, Denies chest pain with activity, Denies edema, Denies irregular heart rhythm, Denies claudication, Denies dyspnea, Denies dyspnea on exertion, Denies orthopnea, Denies paroxysmal nocturnal dyspnea and Denies slow heart rate Resp Denies cough, Denies dyspnea and Denies dyspnea on exertion Physical exam (Primary Care) Vital Signs: Last Vital Signs BP 110/70 02/14/24 07:57 BMI result Body Mass Index 20.7 Tobacco/Smoking Status: Tobacco use Status Tobacco use date assessed 02/14/24 02/14/24 08:03 Patient Tobacco Use Status Never used Tobacco 02/14/24 08:16 e-Cigarette/Vaping Use Never Used 02/14/24 08:16 PHQ-9: PHQ-9 Score PHQ-9: Total score 0 02/14/24 08:14 Depression Screening Interpretation: Negative Thrive Assessment: Date of Thrive Assessment Date Thrive assessed 02/14/24 02/14/24 08:03 Currently or been in a relationship where the following occur: no concerns reported Resp Effort & Inspection: normal respiratory effort Auscultation: clear to auscultation bilaterally Cardio Jugular venous distension: no JVD Rate: regular rate Rhythm: regular rhythm Heart sounds: S1 normal heart sound present and S2 normal heart sound present Extrem Other: Left thumb deformity. General: Yes full ROM Results AMB Hemoglobin A1c AMB Hemoglobin A1c 6.2 % Last Edit by MAYCO Elise on 02/14/24 08:14 Results Reviewed Results Reviewed: Laboratory Last Values Hgb A1c (Clinic) 6.2 % (4.0-6.0) H 02/14/24 08:05 Assessment and Plan Assessment & Plan (1) Well controlled type 2 diabetes mellitus: Code(s): E11.9 - Type 2 diabetes mellitus without complications Plan: Continue metformin. A1c goal is equal or less than 7%. (2) Hypertension, essential: Code(s): I10 - Essential (primary) hypertension Plan: Continue lisinopril. Blood pressure goal is equal or less than 130/80. (3) Hypothyroidism (acquired): Code(s): E03.9 - Hypothyroidism, unspecified Plan: Continue levothyroxine. Monitor TSH. (4) Dyslipidemia: Code(s): E78.5 - Hyperlipidemia, unspecified Plan: Continue statins. Repeat lipid panel. LDL goal is less than 70. (5) Vitamin D deficiency: Code(s): E55.9 - Vitamin D deficiency, unspecified Plan: Continue vitamin-D supplements. Orders: Orders XR hand LT 2V Today M79.642 - Pain in left hand Lipid Panel Today E78.5 - Hyperlipidemia, unspecified IRON PROFILE Today D64.9 - Anemia, unspecified Thyroid Stimulating Hormone Today E03.9 - Hypothyroidism, unspecified Comprehensive [place]. Panel Fast Today E11.9 - Type 2 diabetes mellitus without complications AMB Hemoglobin A1c Today E11.9 - Type 2 diabetes mellitus without complications Microalbumin, Random (w Creat) Today E11.9 - Type 2 diabetes mellitus without complications Vitamin D 25-OH Total Today E55.9 - Vitamin D deficiency, unspecified Complete Blood Count Auto Diff Today D64.9 - Anemia, unspecified Coding Level of Care Code Est Pt Level 4 (12488) Diagnoses Well controlled type 2 diabetes mellitus E11.9 Hypertension, essential I10 Hypothyroidism (acquired) E03.9 Dyslipidemia E78.5 Vitamin D deficiency E55.9 Additional Codes CARLOS-7 Assessment Billing - CARLOS-7 Assessment Tool: CARLOS-7 Assessment 60091 ([id number]) Time Spent (min) 25
== END 2024-02-14 10:41 | disposition home or self-care (01) ==
PROVIDERS: PCP Nurse Practitioner Family; Visit Provider Internal Medicine
DX: E11.9 Type 2 diabetes mellitus without complications (principal); I10 Essential (primary) hypertension; E03.9 Hypothyroidism, unspecified; E78.5 Hyperlipidemia, unspecified; E55.9 Vitamin D deficiency, unspecified
CPT/HCPCS: 83036; 99214

== ENCOUNTER 2024-02-14 08:34 | Outpatient (REF) | payer MEDICARE, MEDICAID, SELFPAY ==
[2024-02-14 11:15] LABS: Basophils Absolute Auto 0.1 X10*3/uL (0.0-0.2); Eosinophils Absolute Auto 0.1 X10*3/uL (0.0-0.4); Eosinophils Percent Auto 1.2 % (0-4); Hematocrit 43.1 % (37.0-47.0); Hemoglobin 14.4 g/dl (12.0-16.0); Imm Gran Abs Auto 0.02 X10*3/uL (0.00-0.03); Imm Gran Pct Auto 0.2 % (0.0-0.4); Lymphocytes Absolute Auto 2.6 X10*3/uL (1.2-4.9); Lymphocytes Percent Auto 28.7 % (20-40); MANUAL DIFF FLAG SCAN; Mean Corpuscular HGB Conc 33.4 g/dl (31.0-35.0); Mean Corpuscular Volume 95.8 fL (80.0-98.0); Mean Platelet Volume 11.1 fL (9.4-12.3); Monocytes Absolute Auto 0.8 X10*3/uL (0.1-1.2); Monocytes Percent Auto 8.9 % (2-11); Neutrophils Absolute Auto 5.5 x10*3/uL (2.0-8.3); PLT CLUMP 1; Red Cell Distribution Width 12.8 % (11.0-16.0); SCAN SMEAR FLAG 1
[2024-02-14 11:17] LABS: White Blood Count 9.2 X10*3/uL (4.8-10.8)
[2024-02-14 11:42] LABS: Platelet Count 177 X10*3/uL (160-400); SLIDE REVIEW VERIFIED
== END 2024-02-14 08:35 | disposition home or self-care (01) ==
LOC: HO.10HDL 08:34
PROVIDERS: Visit Provider Internal Medicine
DX: E78.5 Hyperlipidemia, unspecified (principal); D64.9 Anemia, unspecified; E03.9 Hypothyroidism, unspecified; E11.9 Type 2 diabetes mellitus without complications; E55.9 Vitamin D deficiency, unspecified
CPT/HCPCS: 36415; 80053; 80061; 82306; 83540; 84443; 85025

== ENCOUNTER 2024-02-19 08:48 | Outpatient (REF) | payer MEDICARE, MEDICAID, SELFPAY ==
[2024-02-19 10:13] LABS: Microalbum/Creatinine Ratio Ur 21.3 ug/mg cr (<30)
[2024-02-19 10:18] LABS: Alanine Aminotransferase 64 U/L (0-31); Albumin Level 4.1 g/dL (3.5-5.0); Alkaline Phosphatase 108 U/L (39-117); Anion Gap 16 (12-20); Aspartate Amino Transferase 67 U/L (5-31); Bilirubin Total 0.4 mg/dL (0.0-1.0); Blood Urea Nitrogen 37 mg/dL (9-16); Calcium 10.9 mg/dL (8.4-10.2); Carbon Dioxide 22 mmol/L (22-29); Chloride 106 mmol/L (96-108); Cholesterol 233 mg/dL (<200); Estimated Glomerular Filt Rate 56; Glucose Fasting 125 mg/dL (60-99); HDL Cholesterol 69 mg/dL (>40); Iron 111 mcg/dL (30-160); LDL Cholesterol Calculated 151 mg/dL (<100); Percent Iron Saturation 28 % (15-50); Potassium 4.3 mmol/L (3.3-5.1); Sodium 140 mmol/L (135-145); Total Iron Binding Capacity 403 mcg/dL (228-428); Total Protein 8.4 g/dL (6.5-8.0); Triglycerides 68 mg/dL (<150); Unsaturated Iron Binding 292 ug/dL
[2024-02-19 10:36] LABS: Thyroid Stimulating Hormone 4.55 uIU/mL (0.32-4.0); Vitamin D 25-OH Total 131.9 ng/mL (>30)
== END 2024-02-19 08:49 | disposition home or self-care (01) ==
LOC: HO.10HDL 08:48
PROVIDERS: Visit Provider Internal Medicine
DX: D64.9 Anemia, unspecified (principal); E11.9 Type 2 diabetes mellitus without complications; E78.5 Hyperlipidemia, unspecified; E03.9 Hypothyroidism, unspecified; E55.9 Vitamin D deficiency, unspecified
CPT/HCPCS: 36415; 80053; 80061; 82043; 82306; 82570; 83540; 84443

== ENCOUNTER 2024-02-26 15:33 | Outpatient (AMB) | payer MEDICARE, MEDICAID, SELFPAY ==
[2024-02-26 15:34] VITALS: BP 186/68; PULSE 40; O2SAT 97; BMI 20.7
--- NOTE | 2024-02-26 15:34 | HO.NEPHOV_ITS ---
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 She has a history of hypertension. Blood pressure has been well controlled. She also has essentially normal renal function with a baseline creatinine of l ess than 1.0 mg/dL. Today she has no specific complaints. No headache nausea vomiting. No polyuria polydipsia. No edema no fever no rash. No weight loss. All other systems were reviewed [facility] Medical History No pertinent past medical history Surgical History History of tonsillectomy and adenoidectomy Family History Father Multiple myeloma Mother Lung cancer Sister In good health Social History Housing: House Alcohol intake: current Alcohol intake frequency: holidays/special occasions only Alcohol type: wine and hard liquor Patient Tobacco Use Status: Never used Tobacco e-Cigarette/Vaping Use: Never Used Second Hand Smoke Exposure: No service: No Current occupational status: retired Current occupational exposures/hazards: No Cognitive needs: Yes Hearing needs: No Vision needs: Yes Physical Exam Vital Signs: Last Vital Signs Pulse 40 L 02/26/24 15:34 BP 150/60 H 02/26/24 15:49 Pulse Ox 97 02/26/24 15:34 Oxygen Delivery Method Room Air 02/26/24 15:34 BMI result Body Mass Index 20.7 Const General: comfortable Nutritional Appearance: well nourished Orientation/consciousness: patient oriented x3 HEENT Head: No normal to inspection Mouth: moist mucous membranes Neck Neck: Yes supple and Yes no JVD Resp Auscultation: clear to auscultation bilaterally, no rales and rub present Cardio Jugular venous distension: no JVD Palpation: no palpable S3 and no palpable S4 Heart sounds: no rubs GI Palpation (GI): Soft to palpation and nontender Percussion: No Fluid wave present General: Yes no CVA tenderness Back/Spine/Pelvis Back: no CVA tenderness Skin General skin exam: no rashes or lesions noted Neuro General: patient oriented x3 Extrem General: Yes no pedal edema and No clubbing Results Reviewed Nephrology Results: Hgb 14.4 g/dl (12.0-16.0) 02/14/24 WBC 9.2 X10*3/uL (4.8-10.8) 02/14/24 Plt Count 177 X10*3/uL (160-400) 02/14/24 Sodium 140 mmol/L (135-145) 02/19/24 Potassium 4.3 mmol/L (3.3-5.1) 02/19/24 Chloride 106 mmol/L (96-108) 02/19/24 Carbon Dioxide 22 mmol/L (22-29) 02/19/24 BUN 37 mg/dL (9-16) H 02/19/24 Creatinine 0.98 mg/dL (0.5-1.4) 02/19/24 Calcium 10.9 mg/dL (8.4-10.2) H 02/19/24 Urine Creatinine 56.10 mg/dL 02/19/24 Assessment & Plan Assessment & Plan (1) Hypercalcemia: Code(s): E83.52 - Hypercalcemia Category: Medical (2) Hypertension, essential: Code(s): I10 - Essential (primary) hypertension Category: Medical Plan 73-year-old man with a history of hypertension with mild hypercalcemia. Vitamin-D level was elevated 131. I suspect she is hypercalcemia primarily due to excessive vitamin-D intake. However other causes should be ruled out. For now I will discontinue vitamin-D supplementation. Recheck calcium and intact PTH level along with serum electrophoresis in the next 1-2 weeks. At present she is asymptomatic and does not require any specific therapy for the mild hypercalcemia. The blood pressure is acceptable. Encouraged her to stay on low-sodium diet and we will follow her blood pressure during next visit. I have answered all her questions and reassured her. Orders: Orders Creatinine Urine 2 Weeks E83.52 - Hypercalcemia, I10 - Essential (primary) hypertension, N05.9 - Unspecified nephritic syndrome with unspecified morphologic changes Protein Electrophoresis, Serum 2 Weeks E83.52 - Hypercalcemia, I10 - Essential (primary) hypertension Total Protein Urine Random 2 Weeks E8.52 - Hypercalcemia, I10 - Essential (primary) hypertension UA and rflx microscopic 2 Weeks E83.52 - Hypercalcemia, I10 - Essential (primary) hypertension Parathyroid Hormone Intact 2 Weeks E83.52 - Hypercalcemia Medications: Discontinued cholecalciferol (vitamin D3) Discontinued Reason: Doctor's Order 25 mcg PO DAILY 30 caps 6RF Coding Level of Care Code New Pt Level 4 (48095) Diagnoses Hypercalcemia E8. Hypertension, essential I10
[2024-02-26 15:49] VITALS: BP 150/60
== END 2024-02-26 15:53 | disposition home or self-care (01) ==
PROVIDERS: PCP Internal Medicine; Referring Provider Internal Medicine; Visit Provider Internal Medicine Hypertension Specialist
DX: E83.52 Hypercalcemia (principal); I10 Essential (primary) hypertension
CPT/HCPCS: 99204

== ENCOUNTER → 2024-02-26 15:33 | Outpatient (BNVA) | payer MEDICARE, MEDICAID, SELFPAY | PROVIDERS: PCP Internal Medicine; Referring Provider Internal Medicine; Visit Provider Internal Medicine Hypertension Specialist | DX: N05.9 Unspecified nephritic syndrome with unspecified morphologic changes (principal); E83.52 Hypercalcemia; I10 Essential (primary) hypertension; E11.9 Type 2 diabetes mellitus without complications | CPT/HCPCS: 99202 ==

== ENCOUNTER 2024-03-11 08:33 | Outpatient (REF) | payer MEDICARE, MEDICAID, SELFPAY ==
[2024-03-11 11:01] LABS: Parathyroid Hormone Intact 34.7 pg/mL (8.7-77.1)
== END 2024-03-11 08:34 | disposition home or self-care (01) ==
LOC: HO.10HDL 08:33
PROVIDERS: Visit Provider Internal Medicine Hypertension Specialist
DX: E83.42 Hypomagnesemia (principal)
CPT/HCPCS: 36415; 83970

== ENCOUNTER 2024-03-12 08:56 | Outpatient (REF) | payer MEDICARE, MEDICAID, SELFPAY ==
[2024-03-12 11:31] LABS: Appearance Urine Clear; Color Urine Yellow; Glucose Urine UA Negative (Negative); Leukocyte Esterase Urine Trace (Negative); Nitrite Urine Negative (Negative); Specific Gravity - Urine 1.015 (1.005-1.025); UMIC TRIGGER UA YES; Urine Blood Negative (Negative); Urine Ketones Negative (Negative); Urine Protein Negative (Neg-Trace)
[2024-03-12 11:34] LABS: Bacteria Urine None Seen (None Seen); Hyaline Casts Urine 0-2 /LPF (0-2); RBC Urine 0-2 /HPF (0-2); Squamous Epithelial Cell Urine 0-2 /HPF (0-2); WBC Urine 0-5 /HPF (0-5)
[2024-03-12 11:59] LABS: Creatinine Urine 58.74 mg/dL; Total Protein Urine Random 11 mg/dL (<12)
== END 2024-03-12 08:57 | disposition home or self-care (01) ==
LOC: HO.10HDLNP 08:56
PROVIDERS: Visit Provider Internal Medicine Hypertension Specialist
DX: N05.9 Unspecified nephritic syndrome with unspecified morphologic changes (principal); E83.52 Hypercalcemia; I10 Essential (primary) hypertension
CPT/HCPCS: 81001; 82570; 84156

== ENCOUNTER 2024-03-18 10:20 | Outpatient (AMB) | payer MEDICARE, MEDICAID, SELFPAY ==
[2024-03-18 10:26] VITALS: BP 190/50; PULSE 36; O2SAT 98; BMI 20.6
--- NOTE | 2024-03-18 10:26 | HO.NEPHOV_ITS ---
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 She has a history of hypertension. Blood pressure has been well controlled. She also has essentially normal renal function with a baseline creatinine of less than 1.0 mg/dL. Today she has no specific complaints. No headache nausea vomiting. No polyuria polydipsia. No edema no fever no rash. No weight loss. All other systems were reviewed 03/18/2024. Chelsea is here for follow-up. No new complaints. Lab results are pending COUNTS INCLUDE 234 BEDS AT THE [facility] Medical History No pertinent past medical history Surgical History History of tonsillectomy and adenoidectomy Family History Father Multiple myeloma Mother Lung cancer Sister In good health Social History Housing: House Alcohol intake: current Alcohol intake frequency: holidays/special occasions only Alcohol type: wine and hard liquor Patient Tobacco Use Status: Never used Tobacco e-Cigarette/Vaping Use: Never Used Second Hand Smoke Exposure: No service: No Current occupational status: retired Current occupational exposures/hazards: No Cognitive needs: Yes Hearing needs: No Vision needs: Yes Physical Exam Vital Signs: Last Vital Signs Pulse 36 L 03/18/24 10:26 BP 190/50 H 03/18/24 10:26 Pulse Ox 98 03/18/24 10:26 Oxygen Delivery Method Room Air 03/18/24 10:26 BMI result Body Mass Index 20.6 Const General: comfortable Nutritional Appearance: well nourished Orientation/consciousness: patient oriented x3 HEENT Head: No normal to inspection Mouth: moist mucous membranes Neck Neck: Yes supple and Yes no JVD Resp Auscultation: clear to auscultation bilaterally and no rales Cardio Jugular venous distension: no JVD Palpation: no palpable S3 and no palpable S4 Heart sounds: no rubs GI Palpation (GI): Soft to palpation and nontender Percussion: No Fluid wave present General: Yes no CVA tenderness Back/Spine/Pelvis Back: no CVA tenderness Skin General skin exam: no rashes or lesions noted Neuro General: patient oriented x3 Extrem General: Yes no pedal edema and No clubbing Results Reviewed Nephrology Results: Hgb 14.4 g/dl (12.0-16.0) 02/14/24 WBC 9.2 X10*3/uL (4.8-10.8) 02/14/24 Plt Count 177 X10*3/uL (160-400) 02/14/24 Sodium 140 mmol/L (135-145) 02/19/24 Potassium 4.3 mmol/L (3.3-5.1) 02/19/24 Chloride 106 mmol/L (96-108) 02/19/24 Carbon Dioxide 22 mmol/L (22-29) 02/19/24 BUN 37 mg/dL (9-16) H 02/19/24 Creatinine 0.98 mg/dL (0.5-1.4) 02/19/24 Calcium 10.9 mg/dL (8.4-10.2) H 02/19/24 PTH Intact 34.7 pg/mL (8.7-77.1) 03/11/24 Urine Protein Negative mg/dL (Neg-Trace) 03/12/24 Urine Creatinine 58.74 mg/dL 03/12/24 Assessment & Plan Assessment & Plan (1) Hypercalcemia: Code(s): E83.52 - Hypercalcemia Category: Medical (2) Vitamin D deficiency: Code(s): E55.9 - Vitamin D deficiency, unspecified Category: Medical (3) Hypertension, essential: Code(s): I10 - Essential (primary) hypertension Category: Medical Plan 73-year-old man with a history of hypertension with mild hypercalcemia. Vitamin-D level was elevated 131. I suspect she is hypercalcemia primarily due to excessive vitamin-D intake. However other causes should be ruled out. For now I will discontinue vitamin-D supplementation. PTH is 34. Vitamin-D levels and a serum electrophoresis are not done. Repeat calcium not available. Reordered lab work today. At present she is asymptomatic and does not require any specific therapy for the mild hypercalcemia. Blood pressure is elevated. I have asked her to stop by next week for blood pressure check. I have not made any changes to medications today. Encouraged her to stay on low-sodium diet and we will follow her blood pressure during next visit. Orders: Orders Basic Metabolic Panel Today E55.9 - Vitamin D deficiency, unspecified, E83.52 - Hypercalcemia, I10 - Essential (primary) hypertension Protein Electrophoresis, Serum Today E55.9 - Vitamin D deficiency, unspecified, E83.52 - Hypercalcemia, I10 - Essential (primary) hypertension Coding Level of Care Code Est Pt Level 4 (42317) Diagnoses Hypercalcemia E83.52 Vitamin D deficiency E55.9 Hypertension, essential I10
== END 2024-03-18 11:15 | disposition home or self-care (01) ==
PROVIDERS: PCP Internal Medicine; Visit Provider Internal Medicine Hypertension Specialist
DX: I10 Essential (primary) hypertension (principal); E83.52 Hypercalcemia
CPT/HCPCS: 99214

== ENCOUNTER → 2024-03-18 10:20 | Outpatient (BNVA) | payer MEDICARE, MEDICAID, SELFPAY | PROVIDERS: PCP Internal Medicine; Visit Provider Internal Medicine Hypertension Specialist ==

== ENCOUNTER 2024-03-18 10:58 | Outpatient (REF) | payer MEDICARE, MEDICAID, SELFPAY ==
[2024-03-18 13:39] LABS: Anion Gap 12 (12-20); Blood Urea Nitrogen 28 mg/dL (9-16); Calcium 10.8 mg/dL (8.4-10.2); Carbon Dioxide 25 mmol/L (22-29); Chloride 109 mmol/L (96-108); Estimated Glomerular Filt Rate > 60; Glucose Random 109 mg/dL (60-115); Sodium 142 mmol/L (135-145)
[2024-03-19 21:28] LABS: Prot Elec - Albumin 4.2 g/dL (3.8-4.8); Prot Elec - Alpha1 0.3 g/dL (0.2-0.3); Prot Elec - Alpha2 0.8 g/dL (0.5-0.9); Prot Elec - Beta 1 0.6 g/dL (0.4-0.6); Prot Elec - Beta 2 0.5 g/dL (0.2-0.5); Prot Elec - Gamma 1.6 g/dL (0.8-1.7)
== END 2024-03-18 10:59 | disposition home or self-care (01) ==
LOC: HO.10HDL 10:58
PROVIDERS: Visit Provider Internal Medicine Hypertension Specialist
DX: E55.9 Vitamin D deficiency, unspecified (principal); I10 Essential (primary) hypertension
CPT/HCPCS: 36415; 80048; 84165; 99212

== ENCOUNTER 2024-03-25 10:09 | Outpatient (REF) | payer MEDICARE, MEDICAID, SELFPAY ==
--- NOTE | ~2024-03-25 | XR_ITS ---
EXAMINATION: XR HAND, LEFT CLINICAL INFORMATION: Left hand pain. COMPARISON: None available. TECHNIQUE: PA, lateral, and oblique views of the left hand. FINDINGS: Bones are osteopenic. No fractures. There is mild osteoarthritis of the thumb MCP joint with nonuniform joint space narrowing and small marginal osteophytes. Additional mild osteoarthritis is suspected at the first CMC joint. There is slight ulnar translation of the carpus at the radiocarpal joint, likely developmental. No erosions are identified. No radiodense foreign bodies or subcutaneous gas. 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 No acute osseous findings.
[2024-03-25 12:21] LABS: Parathyroid Hormone Intact 43.9 pg/mL (8.7-77.1)
[2024-03-25 12:32] LABS: Phosphorus 3.2 mg/dL (2.7-4.5)
[2024-03-25 12:41] LABS: Thyroid Stimulating Hormone 2.49 uIU/mL (0.32-4.0); Vitamin D 25-OH Total 85.3 ng/mL (>30)
[2024-03-26 13:38] LABS: Calcium, Ionized 5.3 mg/dL (4.7-5.5)
[2024-03-29 19:04] LABS: Vitamin A 46 mcg/dL (38-98)
[2024-04-02 10:09] LABS: Prot Elec - Albumin 4.2 g/dL (3.8-4.8); Prot Elec - Alpha1 0.3 g/dL (0.2-0.3); Prot Elec - Beta 1 0.6 g/dL (0.4-0.6); Prot Elec - Beta 2 0.5 g/dL (0.2-0.5); Prot Elec - Gamma 1.7 g/dL (0.8-1.7); Prot Elec - Total Protein 8.3 g/dL (6.1-8.1)
== END 2024-03-25 10:10 | disposition home or self-care (01) ==
LOC: HO.LAB 10:09
PROVIDERS: PCP Internal Medicine; Visit Provider Internal Medicine
DX: E83.52 Hypercalcemia (principal); E55.9 Vitamin D deficiency, unspecified; I10 Essential (primary) hypertension; M79.642 Pain in left hand; R77.8 Other specified abnormalities of plasma proteins; E03.9 Hypothyroidism, unspecified
CPT/HCPCS: 36415; 73120; 82306; 82330; 83970; 84100; 84165; 84443; 84590; 99211

== ENCOUNTER 2024-03-25 11:06 | Outpatient (AMB) | payer MEDICARE, MEDICAID, SELFPAY ==
--- NOTE | 2024-03-25 11:08 | HO.NEPHOV_ITS ---
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 She has a history of hypertension. Blood pressure has been well controlled. She also has essentially normal renal function with a baseline creatinine of less than 1.0 mg/dL. Today she has no specific complaints. No headache nausea vomiting. No polyuria polydipsia. No edema no fever no rash. No weight loss. All other systems were reviewed 03/18/2024. Chelsea is here for follow-up. No new complaints. Lab results are pending 03/25/2024. Stopped for blood pressure check no complaints [facility] Medical History No pertinent past medical history Surgical History History of tonsillectomy and adenoidectomy Family History Father Multiple myeloma Mother Lung cancer Sister In good health Social History Housing: House Alcohol intake: current Alcohol intake frequency: holidays/special occasions only Alcohol type: wine and hard liquor Patient Tobacco Use Status: Never used Tobacco e-Cigarette/Vaping Use: Never Used Second Hand Smoke Exposure: No service: No Current occupational status: retired Current occupational exposures/hazards: No Cognitive needs: Yes Hearing needs: No Vision needs: Yes Physical Exam Vital Signs: Last Vital Signs Pulse 37 L 03/25/24 11:09 BP 140/72 H 03/25/24 11:09 Pulse Ox 99 03/25/24 11:09 Oxygen Delivery Method Room Air 03/25/24 11:09 BMI result Body Mass Index 20.4 Const General: comfortable; No acute distress Orientation/consciousness: patient oriented x3 Eyes General: appearance normal, both eyes and all related structures Visual Hearn: normal visual hearn by confrontation Neck Neck: Yes supple and Yes no JVD Resp Effort & Inspection: normal respiratory effort and respiratory effort not decreased Auscultation: rhonchi Cardio Palpation: no palpable S3 and no palpable S4 Heart sounds: no rubs GI Inspection: Yes normal to inspection Palpation (GI): Soft to palpation Percussion: Yes normal to percussion Auscultation: normal bowel sounds General: Yes no CVA tenderness Back/Spine/Pelvis Back: no CVA tenderness Skin General skin exam: no petechiae and no purpura Neuro General: patient oriented x3 and no focal motor deficits Extrem General: No clubbing and No edema Results Reviewed Nephrology Results: Hgb 14.4 g/dl (12.0-16.0) 02/14/24 WBC 9.2 X10*3/uL (4.8-10.8) 02/14/24 Plt Count 177 X10*3/uL (160-400) 02/14/24 Sodium 142 mmol/L (135-145) 03/18/24 Potassium 4.0 mmol/L (3.3-5.1) 03/18/24 Chloride 109 mmol/L (96-108) H 03/18/24 Carbon Dioxide 25 mmol/L (22-29) 03/18/24 BUN 28 mg/dL (9-16) H 03/18/24 Creatinine 0.81 mg/dL (0.5-1.4) 03/18/24 Calcium 10.8 mg/dL (8.4-10.2) H 03/18/24 Phosphorus Pending 03/25/24 PTH Intact 34.7 pg/mL (8.7-77.1) 03/11/24 Urine Protein Negative mg/dL (Neg-Trace) 03/12/24 Urine Creatinine 58.74 mg/dL 03/12/24 Assessment & Plan Assessment & Plan (1) Hypercalcemia: Code(s): E83.52 - Hypercalcemia Category: Medical (2) Vitamin D deficiency: Code(s): E55.9 - Vitamin D deficiency, unspecified Category: Medical (3) Hypertension, essential: Code(s): I10 - Essential (primary) hypertension Category: Medical Plan 73-year-old man with a history of hypertension with mild hypercalcemia. Vitamin-D level was elevated 131. I suspect she is hypercalcemia primarily due to excessive vitamin-D intake. However other causes should be ruled out. For now I will discontinue vitamin-D supplementation. SPEP negative repeat PTH pending At present she is asymptomatic and does not require any specific therapy for the mild hypercalcemia. Blood pressure is better controlled today No changes in medication Encouraged her to stay on low-sodium diet and we will follow her blood pressure during next visit. Orders: Orders Parathyroid Hormone Intact 4 Months E83.52 - Hypercalcemia Basic Metabolic Panel 4 Months E83.52 - Hypercalcemia Vitamin D 25-OH (D2 and D3) 4 Months E83.52 - Hypercalcemia Coding Level of Care Code Est Pt Level 1 (07705) Diagnoses Hypercalcemia E83.52 Vitamin D deficiency E55.9 Hypertension, essential I10
[2024-03-25 11:09] VITALS: BP 140/72; PULSE 37; O2SAT 99; BMI 20.4
== END 2024-03-25 11:18 | disposition home or self-care (01) ==
LOC: HO.HKA 11:06
PROVIDERS: PCP Internal Medicine; Visit Provider Internal Medicine Hypertension Specialist
DX: E83.52 Hypercalcemia (principal); E55.9 Vitamin D deficiency, unspecified; I10 Essential (primary) hypertension

== ENCOUNTER 2024-04-03 09:02 | Outpatient (REF) | payer MEDICARE, MEDICAID, SELFPAY ==
[2024-04-05 17:14] LABS: Calcium, Random Urine 6.5 mg/dL
== END 2024-04-03 09:03 | disposition home or self-care (01) ==
LOC: HO.10HDLNP 09:02
PROVIDERS: Visit Provider Internal Medicine
DX: E83.52 Hypercalcemia (principal)
CPT/HCPCS: 82310

== ENCOUNTER → 2024-05-01 09:15 | Outpatient (BNV) | payer MEDICARE, MEDICAID, SELFPAY | PROVIDERS: PCP Internal Medicine; Referring Provider Internal Medicine; Visit Provider Internal Medicine | DX: R79.82 Elevated C-reactive protein (CRP) (principal) | CPT/HCPCS: 99203 ==

== ENCOUNTER 2024-07-17 08:20 | Outpatient (REF) | payer MEDICARE, MEDICAID, SELFPAY ==
[2024-07-17 11:00] LABS: Anion Gap 12 (12-20); Blood Urea Nitrogen 27 mg/dL (9-16); Calcium 10.5 mg/dL (8.4-10.2); Carbon Dioxide 25 mmol/L (22-29); Chloride 107 mmol/L (96-108); Estimated Glomerular Filt Rate > 60; Glucose Random 111 mg/dL (60-115); Potassium 4.2 mmol/L (3.3-5.1); Sodium 140 mmol/L (135-145)
[2024-07-17 11:18] LABS: Parathyroid Hormone Intact 25.4 pg/mL (8.7-77.1)
[2024-07-21 17:38] LABS: Vitamin D 25-OH, D2 <4 ng/mL; Vitamin D 25-OH, D3 54 ng/mL; Vitamin D 25-OH, Total 54 ng/mL (30-100)
== END 2024-07-17 08:21 | disposition home or self-care (01) ==
LOC: HO.10HDL 08:20
PROVIDERS: Visit Provider Internal Medicine Hypertension Specialist
DX: E83.52 Hypercalcemia (principal)
CPT/HCPCS: 36415; 80048; 82306; 83970

== ENCOUNTER 2024-07-18 09:44 | Outpatient (AMB) | payer MEDICARE, MEDICAID, SELFPAY ==
[2024-07-18 09:50] VITALS: BP 150/66; PULSE 35; O2SAT 100; BMI 21.1
--- NOTE | 2024-07-18 09:50 | HO.NEPHOV ---
Vital Signs 07/18/24 09:50 Height 4 ft 8 in Weight 94 lb BMI 21.1 BP 150/66 H Blood Pressure Location Rt brachial Position Sitting Pulse 35 L Pulse Source Pulse Oximeter Pulse Oximetry (%) 100 Oxygen Delivery Method Room Air Intake Visit Reasons: 4 mon follow up/ Conf Industrial Relations Counselor Required: No Accompanied by: Sister Allergies No Known Allergies Allergy (Verified 07/18/24 09:51) Medication List - Last Reconciled 07/18/24 by Duglas Christianson MD atorvastatin 40 mg PO BEDTIME 90 days blood pressure monitor As directed levothyroxine 50 mcg PO DAILY 90 days lisinopril 5 mg PO DAILY metformin ER 750 mg PO DAILY 3 months multivitamin with iron (Tab-A-Joselo/Iron tablet) 1 tab PO DAILY omega-3 fatty acids-fish oil 300-1,000 mg 1 cap PO DAILY zinc gluconate 50 mg PO DAILY HPI Comments Details: 73-year-old female with diabetes mellitus type 2, hypertension, hypothyroidism, dyslipidemia and h/o vitamin-D who has been on cholecalciferol was recently found to have hypercalcemia with a calcium of 10.9 and hence this referral. She has a history of hypertension. Blood pressure has been well controlled. She also has essentially normal renal function with a baseline creatinine of less than 1.0 mg/dL. Today she has no specific complaints. No headache nausea vomiting. No polyuria polydipsia. No edema no fever no rash. No weight loss. All other systems were reviewed 03/18/2024. Chelsea is here for follow-up. No new complaints. Lab results are pending 03/25/2024. Stopped for blood pressure check no complaints 07/18/24 Overall doing OK Not on any calcium supplements or Vit D Ca down to 10.5 SPEP negative iPTH 45 PFSH Medical History No pertinent past medical history Surgical History History of tonsillectomy and adenoidectomy Family History Father Multiple myeloma Mother Lung cancer Sister In good health Social History Household Members: Family Housing: House Alcohol intake: current Alcohol intake frequency: holidays/special occasions only Alcohol type: wine and hard liquor Patient Tobacco Use Status: Never used Tobacco e-Cigarette/Vaping Use: Never Used Second Hand Smoke Exposure: No Current occupational status: retired and disabled Current occupational exposures/hazards: No Gender identity: Female Cognitive needs: Yes Hearing needs: No Vision needs: Yes Physical Exam Vital Signs: Last Vital Signs Pulse 35 L 07/18/24 09:50 BP 150/66 H 07/18/24 09:50 Pulse Ox 100 07/18/24 09:50 Oxygen Delivery Method Room Air 07/18/24 09:50 BMI result Body Mass Index 21.1 Const General: comfortable; No acute distress Orientation/consciousness: patient oriented x3 Eyes General: appearance normal, both eyes and all related structures Visual Talavera: normal visual talavera by confrontation Neck Neck: Yes supple and Yes no JVD Resp Effort & Inspection: normal respiratory effort and respiratory effort not decreased Auscultation: rhonchi Cardio Palpation: no palpable S3 and no palpable S4 Heart sounds: no rubs GI Inspection: Yes normal to inspection Palpation (GI): Soft to palpation Percussion: Yes normal to percussion Auscultation: normal bowel sounds General: Yes no CVA tenderness Back/Spine/Pelvis Back: no CVA tenderness Skin General skin exam: no petechiae and no purpura Neuro General: patient oriented x3 and no focal motor deficits Extrem General: No clubbing and No edema Results Reviewed Nephrology Results: Sodium 140 mmol/L (135-145) 07/17/24 Potassium 4.2 mmol/L (3.3-5.1) 07/17/24 Chloride 107 mmol/L (96-108) 07/17/24 Carbon Dioxide 25 mmol/L (22-29) 07/17/24 BUN 27 mg/dL (9-16) H 07/17/24 Creatinine 0.83 mg/dL (0.5-1.4) 07/17/24 Calcium 10.5 mg/dL (8.4-10.2) H 07/17/24 Phosphorus 3.2 mg/dL (2.7-4.5) 03/25/24 PTH Intact 25.4 pg/mL (8.7-77.1) 07/17/24 Urine Protein Negative mg/dL (Neg-Trace) 03/12/24 Urine Creatinine 58.74 mg/dL 03/12/24 Assessment & Plan Assessment & Plan (1) Hypercalcemia: Code(s): E83.52 - Hypercalcemia Category: Medical (2) Vitamin D deficiency: Code(s): E55.9 - Vitamin D deficiency, unspecified Category: Medical (3) Hypertension, essential: Code(s): I10 - Essential (primary) hypertension Category: Medical Plan 73-year-old man with a history of hypertension with mild hypercalcemia. Vitamin-D level was elevated 131. I suspect she is hypercalcemia primarily due to excessive vitamin-D intake. For now I will discontinue vitamin-D supplementation. SPEP negative repeat PTH did not show MCGP ORdered PTHrp At present she is asymptomatic and does not require any specific therapy for the mild hypercalcemia. Blood pressure was elevated initially REpeat was better No changes in medication Encouraged her to stay on low-sodium diet and we will follow her blood pressure during next visit. Orders: Orders Basic Metabolic Panel 4 Months E83.52 - Hypercalcemia, I10 - Essential (primary) hypertension Parathyroid Hormone Intact Today E83.52 - Hypercalcemia, I10 - Essential (primary) hypertension Parathyroid Hormone Related Pr Today E83.52 - Hypercalcemia, I10 - Essential (primary) hypertension Coding Level of Care Code Est Pt Level 4 (26730) Diagnoses Hypercalcemia E83.52 Vitamin D deficiency E55.9 Hypertension, essential I10
== END 2024-07-18 10:17 | disposition home or self-care (01) ==
PROVIDERS: PCP Internal Medicine; Visit Provider Internal Medicine Hypertension Specialist
DX: E83.52 Hypercalcemia (principal); I10 Essential (primary) hypertension
CPT/HCPCS: 99214

== ENCOUNTER → 2024-07-18 09:44 | Outpatient (BNVA) | payer MEDICARE, MEDICAID, SELFPAY | PROVIDERS: PCP Internal Medicine; Visit Provider Internal Medicine Hypertension Specialist | DX: E83.52 Hypercalcemia (principal); I10 Essential (primary) hypertension | CPT/HCPCS: 99212 ==

== ENCOUNTER 2024-08-19 07:52 | Outpatient (AMB) | payer MEDICARE, MEDICAID, SELFPAY ==
--- NOTE | 2024-08-19 07:57 | A.OFFPC_ITS ---
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 Required: No Accompanied by: Sister Allergies No Known Allergies Allergy (Verified 08/19/24 08:14) Medication List - Last Reconciled 08/19/24 by Yenni Bentley MD atorvastatin 40 mg PO BEDTIME 90 days blood pressure monitor As directed levothyroxine 50 mcg PO DAILY 90 days lisinopril 5 mg PO DAILY metformin ER 750 mg PO DAILY 3 months multivitamin with iron (Tab-A-Joselo/Iron tablet) 1 tab PO DAILY omega-3 fatty acids-fish oil 300-1,000 mg 1 cap PO DAILY zinc gluconate 50 mg PO DAILY Tobacco use date assessed: 02/14/24 Fall risk assessment: No Falls in past year Last assessed Fall Risk: 08/19/24 Dental Screening Dental Screen Date: 08/19/24 Did you have a dental visit in the last 12 months?: No Did you have a dental problem in the last 6 months where you did not have access to dental care?: No Was dental information given to patient?: Patient has dentist HPI HPI Comments History of Present Illness Details This is a 74-year-old female with hypothyroidism, hypertension, diabetes mellitus type 2 and hyperlipidemia that comes today accompanied by family member for follow-up on her conditions. Last TSH was normal. Blood pressure well controlled. A1c within goal. LDL will be repeated for the next 6 months. Denies any chest pain or shortness on breath. Had a positive Cologuard and has an appointment in November with Gastroenterology for evaluation. [facility] Medical History No pertinent past medical history Surgical History History of tonsillectomy and adenoidectomy Family History Father Multiple myeloma Mother Lung cancer Sister In good health Social History Household Members: Family Housing: House Alcohol intake: current Alcohol intake frequency: holidays/special occasions only Alcohol type: wine and hard liquor Patient Tobacco Use Status: Never used Tobacco e-Cigarette/Vaping Use: Never Used Second Hand Smoke Exposure: No service: No Current occupational status: retired and disabled Current occupational exposures/hazards: No Gender identity: Female Cognitive needs: Yes Hearing needs: No Vision needs: Yes Questionnaire Thrive Questionnaire Date Thrive assessed: 02/14/24 CARLOS-7 AMB Questionnaire CARLOS-7 Date CARLOS - 7 assessed: 02/14/24 Source: Developed by Drs. Leonid Oseguera, Lorena Caceres, Richard Leahy and colleagues, with an educational casey from [employer]. Review of Systems Const All systems reviewed & are unremarkable except as noted in HPI and below Card Denies chest pain at rest, Denies chest pain with activity, Denies edema, Denies irregular heart rhythm, Denies claudication, Denies dyspnea, Denies dyspnea on exertion, Denies orthopnea, Denies paroxysmal nocturnal dyspnea and Denies slow heart rate Resp Denies cough, Denies dyspnea and Denies dyspnea on exertion GI Denies abdominal pain, Denies change in bowel habits, Denies excessive flatus, Denies nausea and Denies vomiting Denies urinary incontinence, Denies urinary hesitancy and Denies urinary urgency Neuro Denies lack of coordination Physical exam (Primary Care) Vital Signs: Last Vital Signs BP 118/76 08/19/24 07:58 BMI result Body Mass Index 20.4 Tobacco/Smoking Status: Tobacco use Status Tobacco use date assessed 02/14/24 08/19/24 08:03 Patient Tobacco Use Status Never used Tobacco 08/19/24 08:03 e-Cigarette/Vaping Use Never Used 08/19/24 08:03 Thrive Assessment: Date of Thrive Assessment Date Thrive assessed 02/14/24 08/19/24 08:03 Resp Effort & Inspection: normal respiratory effort Auscultation: clear to auscultation bilaterally Cardio Jugular venous distension: no JVD Rate: regular rate Rhythm: regular rhythm Heart sounds: S1 normal heart sound present and S2 normal heart sound present Extrem General: Yes full ROM Results AMB Hemoglobin A1c AMB Hemoglobin A1c 6.5 % Last Edit by MAYCO Elise on 08/19/24 08:1 3 Results Reviewed Results Reviewed: Laboratory Last Values Hgb A1c (Clinic) 6.5 % (4.0-6.0) H 08/19/24 08:13 Coding Level of Care Code Est Pt Level 4 (98004) Complex EM visit Add On G2211 Diagnoses Hypertension, essential I10 Hypothyroidism (acquired) E03.9 Well controlled type 2 diabetes mellitus E11.9 Hyperlipidemia LDL goal <70 E78.5 Time Spent (min) 22 Assessment & Plan Assessment & Plan (1) Hypertension, essential: Code(s): I10 - Essential (primary) hypertension Category: Medical Plan: Continue lisinopril. Blood pressure goal is equal or less than 130/80. (2) Hypothyroidism (acquired): Code(s): E03.9 - Hypothyroidism, unspecified Category: Medical Plan: Continue levothyroxine. Monitor TSH. (3) Well controlled type 2 diabetes mellitus: Code(s): E11.9 - Type 2 diabetes mellitus without complications Category: Medical Plan: Continue metformin. A1c goal is equal or less than 7%. (4) Hyperlipidemia LDL goal <70: Code(s): E78.5 - Hyperlipidemia, unspecified Category: Medical Plan: Continue statins. Repeat lipid panel in 6 months. LDL goal is less than 70. Orders: Orders AMB Hemoglobin A1c Today E11.9 - Type 2 diabetes mellitus without complications Vitamin D 25-OH Total 6 Months E55.9 - Vitamin D deficiency, unspecified Lipid Panel 6 Months E78.5 - Hyperlipidemia, unspecified Microalbumin, Random (w Creat) 6 Months R80.9 - Proteinuria, unspecified Thyroid Stimulating Hormone 6 Months E03.9 - Hypothyroidism, unspecified Comprehensive [place]. Panel Fast 6 Months E11.9 - Type 2 diabetes mellitus without complications
[2024-08-19 07:58] VITALS: BP 118/76; BMI 20.4
== END 2024-08-19 08:24 | disposition home or self-care (01) ==
PROVIDERS: PCP Internal Medicine; Visit Provider Internal Medicine
DX: I10 Essential (primary) hypertension (principal); E03.9 Hypothyroidism, unspecified; E11.9 Type 2 diabetes mellitus without complications; E78.5 Hyperlipidemia, unspecified

== ENCOUNTER → 2024-08-19 07:52 | Outpatient (BNVA) | payer MEDICARE, MEDICAID, SELFPAY | PROVIDERS: PCP Internal Medicine; Visit Provider Internal Medicine | DX: E11.9 Type 2 diabetes mellitus without complications (principal); I10 Essential (primary) hypertension; E03.9 Hypothyroidism, unspecified; E78.5 Hyperlipidemia, unspecified | CPT/HCPCS: 83036; 99212 ==

== ENCOUNTER 2024-11-07 07:32 | Outpatient (REF) | payer MEDICARE, MEDICAID, SELFPAY ==
[2024-11-07 10:59] LABS: Anion Gap 12 (12-20); Blood Urea Nitrogen 25 mg/dL (9-16); Calcium 9.5 mg/dL (8.4-10.2); Carbon Dioxide 22 mmol/L (22-29); Chloride 108 mmol/L (96-108); Estimated Glomerular Filt Rate > 60; Glucose Random 116 mg/dL (60-115); Potassium 4.1 mmol/L (3.3-5.1); Sodium 138 mmol/L (135-145)
== END 2024-11-07 07:33 | disposition home or self-care (01) ==
LOC: HO.10HDL 07:32
PROVIDERS: Visit Provider Internal Medicine Hypertension Specialist
DX: I10 Essential (primary) hypertension (principal); E83.52 Hypercalcemia
CPT/HCPCS: 36415; 80048

== ENCOUNTER → 2024-11-12 07:50 | Outpatient (BNVA) | payer MEDICARE, MEDICAID, SELFPAY | PROVIDERS: PCP Internal Medicine; Visit Provider Nurse Practitioner Family | DX: Z01.818 Encounter for other preprocedural examination (principal); E83.52 Hypercalcemia; E11.9 Type 2 diabetes mellitus without complications; I10 Essential (primary) hypertension; E03.9 Hypothyroidism, unspecified; E78.5 Hyperlipidemia, unspecified; E55.9 Vitamin D deficiency, unspecified; R19.5 Other fecal abnormalities | CPT/HCPCS: 99212 ==

== ENCOUNTER 2024-11-12 14:19 | Outpatient (AMB) | payer MEDICARE, MEDICAID, SELFPAY ==
[2024-11-12 14:20] VITALS: BP 162/62; PULSE 39; O2SAT 98; BMI 21.1
--- NOTE | 2024-11-12 14:20 | HO.NEPHOV ---
Vital Signs 11/12/24 14:20 Height 4 ft 8 in Weight 94 lb BMI 21.1 BP 162/62 H Blood Pressure Location Lt brachial Position Sitting Pulse 39 L Pulse Source Pulse Oximeter Pulse Oximetry (%) 98 Oxygen Delivery Method Room Air Intake Visit Reasons: Hypercalcemia/ Conf Director [employer] Required: No Accompanied by: Sister Allergies No Known Allergies Allergy (Verified 11/12/24 14:22) Medication List - Last Reconciled 11/12/24 by Duglas Christianson MD atorvastatin 40 mg PO BEDTIME 90 days bisacodyl (Dulcolax (bisacodyl)) 20 mg (4 x 5 mg) PO ONCE 1 day blood pressure monitor As directed levothyroxine 50 mcg PO DAILY 90 days lisinopril 5 mg PO DAILY metformin ER 750 mg PO DAILY 3 months multivitamin with iron (Tab-A-Joselo/Iron tablet) 1 tab PO DAILY omega-3 fatty acids-fish oil 300-1,000 mg 1 cap PO DAILY polyethylene glycol 3350 (Miralax) 238 grams PO ONCE zinc gluconate 50 mg PO DAILY HPI Comments Details: 73-year-old female with diabetes mellitus type 2, hypertension, hypothyroidism, dyslipidemia and h/o vitamin-D who has been on cholecalciferol was recently found to have hypercalcemia with a calcium of 10.9 and hence this referral. She has a history of hypertension. Blood pressure has been well controlled. She also has essentially normal renal function with a baseline creatinine of less than 1.0 mg/dL. Today she has no specific complaints. No headache nausea vomiting. No polyuria polydipsia. No edema no fever no rash. No weight loss. All other systems were reviewed 03/18/2024. Chelsea is here for follow-up. No new complaints. Lab results are pending 03/25/2024. Stopped for blood pressure check no complaints 07/18/24 Overall doing OK Not on any calcium supplements or Vit D Ca down to 10.5 SPEP negative iPTH 45 PFSH Medical History No pertinent past medical history Surgical History History of tonsillectomy and adenoidectomy Family History Father Multiple myeloma Mother Lung cancer Sister In good health Social History Household Members: Family Housing: House Alcohol intake: current Alcohol intake frequency: holidays/special occasions only Alcohol type: wine and hard liquor Patient Tobacco Use Status: Never used Tobacco e-Cigarette/Vaping Use: Never Used Second Hand Smoke Exposure: No service: No Current occupational status: retired and disabled Current occupational exposures/hazards: No Gender identity: Female Cognitive needs: Yes Hearing needs: No Vision needs: Yes Physical Exam Vital Signs: Last Vital Signs Pulse 39 L 11/12/24 14:20 BP 162/62 H 11/12/24 14:20 Pulse Ox 98 11/12/24 14:20 Oxygen Delivery Method Room Air 11/12/24 14:20 BMI result Body Mass Index 21.1 Results Reviewed Nephrology Results: Sodium 138 mmol/L (135-145) 11/07/24 Potassium 4.1 mmol/L (3.3-5.1) 11/07/24 Chloride 108 mmol/L (96-108) 11/07/24 Carbon Dioxide 22 mmol/L (22-29) 11/07/24 BUN 25 mg/dL (9-16) H 11/07/24 Creatinine 0.84 mg/dL (0.5-1.4) 11/07/24 Calcium 9.5 mg/dL (8.4-10.2) 11/07/24 PTH Intact 25.4 pg/mL (8.7-77.1) 07/17/24 Assessment & Plan Assessment & Plan (1) Hypercalcemia: Code(s): E83.52 - Hypercalcemia Category: Medical (2) Vitamin D deficiency: Code(s): E55.9 - Vitamin D deficiency, unspecified Category: Medical (3) Hypertension, essential: Code(s): I10 - Essential (primary) hypertension Category: Medical Plan 73-year-old man with a history of hypertension with mild hypercalcemia. Vitamin-D level was elevated 131. I suspect she is hypercalcemia primarily due to excessive vitamin-D intake. For now I will discontinue vitamin-D supplementation. SPEP negative repeat PTH did not show MCGP Repeat serum calcium is in the normal range after lowering vitamin-D supplementation. Monitor vitamin-D levels prior to next visit and restart if needed. Blood pressure was elevated initially REpeat was better No changes in medication Encouraged her to stay on low-sodium diet and we will follow her blood pressure during next visit. Orders: Orders Basic Metabolic Panel 6 Months E83.52 - Hypercalcemia, I10 - Essential (primary) hypertension Vitamin D 25-OH Total 6 Months E83.52 - Hypercalcemia, I10 - Essential (primary) hypertension Coding Level of Care Code Est Pt Level 4 (79966) Diagnoses Hypercalcemia E83.52 Vitamin D deficiency E55.9 Hypertension, essential I10
== END 2024-11-12 14:34 | disposition home or self-care (01) ==
PROVIDERS: PCP Internal Medicine; Visit Provider Internal Medicine Hypertension Specialist
DX: E83.52 Hypercalcemia (principal); I10 Essential (primary) hypertension
CPT/HCPCS: 99214

== ENCOUNTER 2024-11-27 07:38 | Outpatient (REF) | payer MEDICARE, MEDICAID, SELFPAY | END 2024-11-27 07:39 | disposition home or self-care (01) | LOC: HO.MAMMO 07:38 | PROVIDERS: PCP Internal Medicine; Visit Provider Internal Medicine | DX: Z12.31 Encounter for screening mammogram for malignant neoplasm of breast (principal) | CPT/HCPCS: 77063; 77067 ==

== ENCOUNTER → 2024-11-27 07:45 | Outpatient (BNV) | payer MEDICARE, MEDICAID, SELFPAY | PROVIDERS: PCP Internal Medicine; Visit Provider Internal Medicine | DX: Z12.31 Encounter for screening mammogram for malignant neoplasm of breast (principal) | CPT/HCPCS: 77063; 77067 ==

== ENCOUNTER → 2025-01-30 13:13 | Outpatient (BNV) | payer MEDICAID, SELFPAY | PROVIDERS: PCP Student in an Organized Health Care Education/Training Program; Visit Provider Internal Medicine | DX: I44.2 Atrioventricular block, complete (principal) | CPT/HCPCS: 93010; 99223 ==

== ENCOUNTER → 2025-01-30 13:13 | Day surgery (SDC) | payer MEDICAID, SELFPAY ==
--- NOTE | 2025-01-30 13:22 | MHC.SHP ---
Pre-Procedural Eval Section A - 24 Hr Update-Section A only Date of Service: 02/01/25 Section B - Complete if H&P > 30 days Chief Complaint: Positive cologuard Details of Present Illness: HLD Hypercalcemia diverticulosis hypothyroidism HTN Present Medications: see Short Stay Collaborative assessment Allergies: Allergies Allergy/AdvReac Type Severity Reaction Status Date / Time No Known Allergies Allergy Verified 11/12/24 14:22 Review of Systems Review of Systems Comment: Ten point ROS negative Exam Exam Comment: Gen appear: No acute distress HEENT: no icterus Chest: No overt resp distress Abd: soft, nontender, nondistended Psych: Stable affect, answering questions appropriately Neuro: A/Ox3 noted to move all extremities spontaneously Ext: no peripheral edema Plan Diagnosis/Plan: Change Due to significant bradycardia on tele a 12-lead EKG was done that is suspicious for complete heart block. Procedure today is being canceled and a cardiology consultation has been requested by anesthesia. Time Spent With Patient Time: Total time managing care of this patient today ____ minutes.
--- NOTE | 2025-01-30 13:35 | HO.ANESPROP2 ---
HPI - Anesthesia Eval Consult details Narrative: 74 yo female patient for Colonoscopy. Ekg strip ogtained pre-op was noted to be abnormal- HR mostly 30s to low 40s Wenckebach + ?complete AV dissociation. Patient does not report any symptoms. BP 120s/40s 12 lead EKG obtained 01/30/25 : Marked sinus bradycardia 36 with AV dissociation and idioventricular rhythm. RBBB. LAFB (Bifascicular block). Septal infarct- age undetermined. No old ekg seen in system. Cardiology Consult obtained. Recommendations noted with thanks. Patient needs a pacemaker before any procedure (including Colonoscopy) or surgery. Housing Management Officer (Dr Barone) wirking on facilitating. Colonoscopy cancelled for today. Discussion had with patient and her sister. They seem to understand the situation, questions were answered. They agree with the afore- mentioned plan PMF Active Problems Active Problems: All Active Problems Positive colorectal cancer screening using Cologuard test (Acute) Hypercalcemia (Acute) Elevated total protein (Chronic) Hyperlipidemia LDL goal <70 (Acute) Dyslipidemia (Acute) Left hand pain (Acute) Elevated LFTs (Acute) Vitamin D deficiency (Acute) Normal physical exam (Acute) Quality of life palliative care patient (Acute) Encounter for routine adult physical exam with abnormal findings (Acute) Bradycardia by electrocardiogram (Acute) Hypothyroidism (acquired) (Acute) Well controlled type 2 diabetes mellitus (Acute) Anemia, iron deficiency (Acute) Hypertension, essential (Acute) Family History Family History Father Multiple myeloma Mother Lung cancer Sister In good health Surgical History Surgical History History of tonsillectomy and adenoidectomy Social History Social History Household Members: Family Housing: House Alcohol intake: current Alcohol intake frequency: holidays/special occasions only Alcohol type: wine and hard liquor Patient Tobacco Use Status: Never used Tobacco e-Cigarette/Vaping Use: Never Used Second Hand Smoke Exposure: No service: No Current occupational status: retired and disabled Current occupational exposures/hazards: No Gender identity: Female Cognitive needs: Yes Hearing needs: No Vision needs: Yes Meds Allergies Allergy/AdvReac Type Severity Reaction Status Date / Time No Known Allergies Allergy Verified 01/30/25 13:27 Home Medications ?Medication ?Instructions ?Recorded ?Confirmed ?Last Taken ?Type zinc gluconate 50 mg tablet 50 mg PO DAILY 02/26/24 11/12/24 Unknown History
[2025-01-30 13:44] VITALS: BMI 20.2
--- NOTE | 2025-01-30 13:51 | ECG_ITS ---
Test Reason : NEW EKG Blood Pressure : */* mmHG Vent. Rate : 36 BPM Atrial Rate : 36 BPM P-R Int : * ms QRS Dur : 132 ms QT Int : 600 ms P-R-T Axes : 76 -68 63 degrees QTcB Int : 464 ms Complete heart block and Idioventricular rhythm sinus rhythm Abnormal ECG When compared with ECG of 08-Jul-2010 11:26, Rhythm change Referred By: Talya Keller Electronically Signed By: KAITLYN MARSHALL
[2025-01-30 14:07] VITALS: BP 121/48; PULSE 37; RESP 16; TEMP 36.7; O2SAT 99
[2025-01-30 14:09] LABS: Glucose, Whole Blood 116 mg/dL (60-115)
--- NOTE | 2025-01-30 14:37 | P.CONCA_ITS ---
History of Present Illness History of Present Illness Date of Service: 01/30/25 Chief complaint: Positive cologuard Narrative: This is a cardiology consultation regarding heart block. Patient herself does not have any cardiac issues. It seems that she came for colonoscopy and found to have bradycardia and hence we are consulted. Per anesthesia, EKG/telemetry had shown complete heart block. Patient denies any clear-cut complaints like angina or shortness of breath or in fact anything cardiac sounding. She states she can walk and do her daily activities without any symptoms. Denies any history of shortness of breath, presyncope or syncopal episodes. Review of Systems Review of Systems: Yes all other systems are reviewed and are negative Constitutional: Constitutional: Reports as per HPI and Reports no additional constitutional complaints Eyes: Eyes: Reports as per HPI and Denies no additional eye complaints ENT: Denies system reviewed and no additional complaints, except as documented and Reports as per HPI Cardiovascular: Cardiovascular: Reports as per HPI, Reports no additional cardiovascular complaints, Denies acrocyanosis, Denies cool extremities, Denies chest pain, Denies leg edema, Denies lightheadedness, Denies palpitations and Denies dyspnea Respiratory: Respiratory: Reports as per HPI, Denies no additional respiratory complaints and Denies dyspnea Gastrointestinal: Gastrointestinal: Reports as per HPI and Denies no additional gastrointestinal complaints Genitourinary: Genitourinary: Reports as per HPI Musculoskeletal: Musculoskeletal: Reports no additional musculoskeletal complaints and Reports as per HPI Integumentary/Breasts: Skin/Breast: Reports system reviewed and no additional complaints, except as docu Neurologic: Reports system reviewed and no additional complaints, except as documented and Reports as per HPI Psychiatric: Psychiatric: Reports no additional psychiatric complaints and Reports as per HPI Endocrine: Endocrine: Reports no additional endocrine complaints, Reports as per HPI and Denies palpitations Hematologic/Lymphatic: Hematologic/Lymphatic: Reports no additional hematologic/lymphatic complaints and Reports as per HPI Allergic/Immunologic: Allergic/Immunologic: Reports no additional allergic/immunologic complaints and Reports as per HPI [facility] Family History Family History Father Multiple myeloma Mother Lung cancer Sister In good health Surgical History Surgical History History of tonsillectomy and adenoidectomy Social History Social History Household Members: Family Housing: House Alcohol intake: current Alcohol intake frequency: holidays/special occasions only Alcohol type: wine and hard liquor Patient Tobacco Use Status: Never used Tobacco e-Cigarette/Vaping Use: Never Used Second Hand Smoke Exposure: No Use of substances other than those prescribed or required for medical reasons: No Advance Directives: No Advance Directives Information Provided: Yes service: No Current occupational status: retired and disabled Current occupational exposures/hazards: No Gender identity: Female Cognitive needs: Yes Hearing needs: No Vision needs: Yes Meds Allergies Allergy/AdvReac Type Severity Reaction Status Date / Time No Known Allergies Allergy Verified 01/30/25 13:27 Active Medications: Current Medications Lactated Ringer's (Lr) 1,000 mls @ 100 mls/hr IVCONT .Q10H ESA Home Medications ?Medication ?Instructions ?Recorded ?Confirmed ?Last Taken ?Type zinc gluconate 50 mg tablet 50 mg PO DAILY 02/26/24 11/12/24 Unknown History Physical Exam Vital Signs: Vital Signs: Last Vital Signs Temp 98.1 F 01/30/25 14:07 Pulse 37 L 01/30/25 14:07 Resp 16 01/30/25 14:07 BP 121/48 L 01/30/25 14:07 Pulse Ox 99 01/30/25 14:07 O2 Del Method Room Air 01/30/25 14:07 BMI result Body Mass Index 20.2 Const: General: comfortable and no acute distress Orientation/consciousness: patient oriented x3 HEENT: Other: Unremarkable Head: Yes normal to inspection Neck: Neck: Yes normal visual inspection Chest: Chest palpation & inspection: normal inspection of the chest Resp: Auscultation: clear to auscultation bilaterally Cardio: Palpation: normal PMI Heart sounds: S1 normal heart sound present, S2 normal heart sound present, no gallops, no murmurs and no rubs GI: Palpation (GI): Soft to palpation Back/Spine/Pelvis: Other: unremarkable Skin: General skin exam: no rashes or lesions noted Neuro: General: patient oriented x3 Extrem: General: Yes normal to inspection Psych: Mental Status: mental status grossly normal Objective Labs and Meds Lab results: Laboratory Results - last 24 hr 01/30/25 14:03 POC Glucose 116 H ECG Interpretation: EKG with underlying sinus rhythm with complete heart block. Ventricular escape rate of 36/Min. Assessment and Plan (1) Complete heart block: Status: Acute Plan EKG as above shows complete heart block. In a prior EKG from 2020, 2-1 AV block versus complete. Ventricular rate 40/Min. In an older EKG from 2009, sinus rhythm with left bundle-branch block. Overall, suspect progression of conduction system disease over the last several years. Clinically, she has got no overt symptoms but she is going to need a pacemaker. We will need an echocardiogram for cardiac function. As these findings are somewhat chronic, we will need to decide on timing of these procedures. We will contact EP and then follow up with you. Procedures Date of Service Date of Service: 01/30/25
--- NOTE | 2025-01-30 16:45 | PC.NURSE ---
report provieded in full to neto galvan rn following md. Barone's referral to [facility] and accecptance of patient. Patient tx to ed in [facility] report provided for boarding till tx by medical transport to rm 5 at [facility]
== END ==
PROVIDERS: PCP Student in an Organized Health Care Education/Training Program; Visit Provider Internal Medicine
DX: Z12.11 Encounter for screening for malignant neoplasm of colon (principal); Z53.8 Procedure and treatment not carried out for other reasons; I44.2 Atrioventricular block, complete
CPT/HCPCS: 82947; 93005

== ENCOUNTER 2025-01-30 16:43 | Emergency (ER) | payer MEDICARE, MEDICAID, SELFPAY ==
[2025-01-30 16:53] VITALS: BP 174/44; PULSE 44; RESP 16; TEMP 36.8; O2SAT 98; BMI 19.8
--- NOTE | 2025-01-30 16:59 | ECG_ITS ---
Test Reason : CHB Blood Pressure : */* mmHG Vent. Rate : 48 BPM Atrial Rate : 48 BPM P-R Int : 320 ms QRS Dur : 132 ms QT Int : 522 ms P-R-T Axes : 67 -65 80 degrees QTcB Int : 466 ms Normal sinus rhythm with complete heart block Premature ventricular complexes Abnormal ECG When compared with ECG of 30-Jan-2025 13:58, Electronic ventricular pacemaker present Referred By: Carlito Caballero Electronically Signed By: KAITLYN MARSHALL
--- NOTE | 2025-01-30 17:48 | ED.GENADULT ---
HPI - General Adult General Chief complaint: Arrhythmia/Palpitations Stated complaint: Complete heart block Time Seen by Provider: 01/30/25 16:58 Source: patient and other History of Present Illness ED Provider: Federico LACY narrative: 74-year-old female presenting from inside the hospital for complete heart block. Patient was scheduled for colonoscopy however prior to procedure she had an EKG concerning for complete heart block. [facility] EP physician was contacted and accepted patient for transfer however per hospital policy patient needed to come to the emergency department prior to transfer. Pt has no complaints. Related Data Home Medications ?Medication ?Instructions ?Recorded ?Confirmed zinc gluconate 50 mg tablet 50 mg PO DAILY 02/26/24 11/12/24 Previous Rx's ?Medication ?Instructions ?Recorded multivitamin with iron 1 tab PO DAILY #30 tabs 08/18/20 (Tab-A-Joselo/Iron tablet) omega-3 fatty acids-fish oil 300 1 cap PO DAILY #90 caps 11/28/23 mg-1,000 mg capsule lisinopril 5 mg tablet 5 mg PO DAILY #90 tabs 04/26/24 blood pressure monitor #1 ea 05/12/24 atorvastatin 40 mg tablet 40 mg PO BEDTIME 90 days #90 tabs 08/06/24 levothyroxine 50 mcg tablet 50 mcg PO DAILY 90 days #90 tabs 08/06/24 metformin 750 mg tablet,extended 750 mg PO DAILY 3 months #90 tabs 01/02/25 release 24 hr Allergies Allergy/AdvReac Type Severity Reaction Status Date / Time No Known Allergies Allergy Verified 01/30/25 16:56 Review of Systems Review of Systems: Yes all other systems are reviewed and are negative [facility] Past Medical History Surgical History History of tonsillectomy and adenoidectomy Family History Family History Father Multiple myeloma Mother Lung cancer Sister In good health Social History Social History Household Members: Family Housing: House Alcohol intake: current Alcohol intake frequency: holidays/special occasions only Alcohol type: wine and hard liquor Patient Tobacco Use Status: Never used Tobacco e-Cigarette/Vaping Use: Never Used Second Hand Smoke Exposure: No Advance Directives: No Advance Directives Information Provided: Yes service: No Current occupational status: retired and disabled Current occupational exposures/hazards: No Gender identity: Female Cognitive needs: Yes Hearing needs: No Vision needs: Yes Physical Exam ED Vital Signs: Vital Signs - 24 hr 01/30/25 16:53 Temperature 98.3 F Pulse Rate 44 L Respiratory Rate 16 Blood Pressure 174/44 H Pulse Oximetry 98 Oxygen Delivery Method Room Air BMI result Body Mass Index 19.8 Frail-appearing elderly lady in no acute distress Normal speech and cognition Lungs clear to auscultation bilaterally Normal S1-S2 bradycardic Abdomen is soft, nontender Medical Decision Making Medical Decision Making MDM Narrative: 74-year-old female presents to the emergency department for complete heart block. Patient was accepted by efficiency manager Dr. Daniel at [facility]. Patient arrived to the ED stable. I requested pads to be placed. I spoke with the transfer machine operator at [facility] and confirmed she is stable for Cardiology. Discharge Plan Discharge Clinical Impression: Complete heart block Patient Disposition: [facility] Transfer Details: Transfer to [facility] Prescriptions: No Action multivitamin with iron [Tab-A-Joselo/Iron] Tablet 1 tab PO DAILY Qty: 30 0RF omega-3 fatty acids-fish oil 300-1,000 mg capsule 1 cap PO DAILY Qty: 90 3RF lisinopril 5 mg tablet 5 mg PO DAILY Qty: 90 3RF (DME) blood pressure monitor Kit See Rx Instructions .Route Qty: 1 0RF Rx Instructions: As directed levothyroxine 50 mcg tablet 50 mcg PO DAILY 90 Days Qty: 90 1RF atorvastatin 40 mg tablet 40 mg PO BEDTIME 90 Days Qty: 90 1RF metformin 750 mg tablet extended release 24 hr 750 mg PO DAILY 90 Days Qty: 90 0RF zinc gluconate 50 mg tablet 50 mg PO DAILY Print Language: St Helen[place]
--- NOTE | 2025-01-30 17:50 | PC.NURSE ---
late entry aprox 1700 patient was placed on pacer pads by this RN. HR fluxuated btween 36-45. Denied dizziness and SOB at that time. alert in bed. awaiting transfer to [facility]. Report to ALS crew p/\t departure.
== END 2025-01-30 17:49 | disposition short-term general hospital (02) ==
LOC: HO.ED 17:18
PROVIDERS: Emergency Provider Student in an Organized Health Care Education/Training Program; PCP Internal Medicine
DX: I44.2 Atrioventricular block, complete (principal); E11.9 Type 2 diabetes mellitus without complications; I10 Essential (primary) hypertension; E78.5 Hyperlipidemia, unspecified; D50.9 Iron deficiency anemia, unspecified; E03.9 Hypothyroidism, unspecified; Z79.02 Long term (current) use of antithrombotics/antiplatelets; Z79.84 Long term (current) use of oral hypoglycemic drugs; Z79.899 Other long term (current) drug therapy
CPT/HCPCS: 93005; 99283; 99285

== ENCOUNTER 2025-02-19 07:54 | Outpatient (AMB) | payer MEDICARE, MEDICAID, SELFPAY ==
--- NOTE | 2025-02-19 07:56 | A.OFFPC_ITS ---
Vital Signs 02/19/25 07:59 Height 4 ft 8 in Weight 93 lb BMI 20.8 BP 126/72 Blood Pressure Location Lt brachial Position Sitting Intake Visit Reasons: dm Intake Note: Patient here for a follow up DM Marble Setter Required: No Accompanied by: Sister Allergies No Known Allergies Allergy (Verified 02/19/25 08:15) Medication List - Last Reconciled 02/19/25 by Yenni Bentley MD atorvastatin 40 mg PO BEDTIME 90 days blood pressure monitor As directed levothyroxine 50 mcg PO DAILY 90 days lisinopril 5 mg PO DAILY metformin ER 750 mg PO DAILY 3 months multivitamin with iron (Tab-A-Joselo/Iron tablet) 1 tab PO DAILY omega-3 fatty acids-fish oil 300-1,000 mg 1 cap PO DAILY zinc gluconate 50 mg PO DAILY Tobacco use date assessed: 02/19/25 Fall risk assessment: No Falls in past year Last assessed Fall Risk: 02/19/25 Dental Screening Dental Screen Date: 02/19/25 Did you have a dental visit in the last 12 months?: No Did you have a dental problem in the last 6 months where you did not have access to dental care?: No Was dental information given to patient?: Patient has dentist HPI HPI Comments History of Present Illness Details The patient is a 74-year-old female presenting with follow-up on her chronic conditions. Following a positive Cologuard test last year, initial plans for a colonoscopy led to the discovery of a complete heart block during pre- procedural cardiac evaluation. Consequently, a pacemaker was inserted at [facility]. The patient's diabetes mellitus is stable with an A1c of 6.6%, managed by metformin, and her hypertension is well-controlled with lisinopril. Other chronic conditions include hypothyroidism being treated with levothyroxine and hyperlipidemia managed with atorvastatin. Currently, the patient reports no dizziness and maintains stable blood pressure readings. She is compliant with her medication regimen without any reported allergies, and aside from occasionally consuming wine on holidays, she has no significant lifestyle risk factors. Nevertheless, due to prior hypertension, her eye and dental examinations were postponed and need rescheduling now that her blood pressure has been stabilized over time. Chelsea remains up to date with her vaccinations and her last mammogram occurred in November. [facility] Surgical History History of tonsillectomy and adenoidectomy Family History Father Multiple myeloma Mother Lung cancer Sister In good health Social History Household Members: Family Housing: House Alcohol intake: current Alcohol intake frequency: holidays/special occasions only Alcohol type: wine and hard liquor Patient Tobacco Use Status: Never used Tobacco e-Cigarette/Vaping Use: Never Used Second Hand Smoke Exposure: No service: No Current occupational status: retired and disabled Current occupational exposures/hazards: No Gender identity: Female Cognitive needs: Yes Hearing needs: No Vision needs: Yes Questionnaire PHQ-9 Over the last 2 weeks, how often have you been bothered by any of the following problems? 1. Little interest or pleasure in doing things: not at all 2. Feeling down, depressed, or hopeless: not at all 3. Trouble falling or staying asleep, or sleeping too much: not at all 4. Feeling tired or having little energy: not at all 5. Poor appetite or overeating: not at all 6. Feeling bad about yourself - or that you are a failure or have let yourself or your family down: not at all 7. Trouble concentrating on things, such as reading the newspaper or watching television: not at all 8. Moving or speaking so slowly that other people could have noticed. Or the opposite - being so fidgety or restless that you have been moving around a lot more than usual: not at all 9. Thoughts that you would be better off or of hurting yourself in some way: not at all Total score: 0 Depression Screening Interpretation: Negative Depression Screening Done: Yes 92729 - PHQ-9 Billing: Yes Source: Developed by Drs. Leonid Oseguera, Lorena Caceres, Richard Leahy and colleagues, with an educational casey from [employer]. Thrive Questionnaire Date Thrive assessed: 02/19/25 I am a: Parent/Caregiver What is your living situation today?: I have a steady place to live Within the past 12 months, did the food you bought not last and you didn't have the money to get more?: Never true Within the past 12 months, did you worry whether your food would run out before you got money to buy more?: Never true Do you have trouble paying for medicines?: No Do you have trouble getting transportation to medical appointments?: No Do you have trouble paying your heating and electricity bill?: No Do you have trouble taking care of your child, family member or friend?: No Do you have trouble with day-to-day activities such as bathing, preparing meals, shopping, managing finances, etc.?: No Are you currently unemployed and looking for a job?: No Are you interested in more education?: No Please select the resources that you would like help with: None Currently or been in a relationship where the following occur: No concerns reported THRIVE Score: 0 AUDIT C Alcohol Use Questionnaire (AUDIT-C) 1. How often do you have a drink containing alcohol?: Monthly or less 2. How many drinks containing alcohol do you have on a typical day when you are drinking?: 1 or 2 3. How often do you have six or more drinks on one occasion?: Never Total Score: 1 Score Reviewed/Action Taken: No CARLOS-7 AMB Questionnaire CARLOS-7 Date CARLOS - 7 assessed: 02/19/25 Feeling nervous, anxious, or on edge: 0 = Not at all Not being able to stop or control worryin = Not at all Worrying too much about different things: 2 = More than half the days Trouble relaxin = More than half the days Being so restless that it is hard to sit still: 0 = Not at all Becoming easily annoyed or irritable: 0 = Not at all Feeling afraid as if something awful might happen: 0 = Not at all Total CARLOS-7 score (0-4 normal; 5-9 mild; 10-14 moderate; 15-21 severe): 4 Source: Developed by Drs. Leonid Oseguera, Lorena Caceres, Richard Leahy and colleagues, with an educational casey from [employer]. CARLOS-7 Assessment Billing CARLOS-7 Assessment Tool: CARLOS-7 Assessment 12790 Review of Systems Const All systems reviewed & are unremarkable except as noted in HPI and below Card Denies chest pain at rest, Denies chest pain with activity, Denies edema, Denies irregular heart rhythm, Denies claudication, Denies dyspnea, Denies dyspnea on exertion, Denies orthopnea, Denies paroxysmal nocturnal dyspnea and Denies slow heart rate Resp Denies cough, Denies dyspnea and Denies dyspnea on exertion GI Denies abdominal pain, Denies change in bowel habits, Denies excessive flatus, Denies nausea and Denies vomiting Musc Denies abnormal gait, Denies atrophy, Denies deformity and Denies limited range of motion Neuro Denies abnormal gait, Denies behavioral changes and Denies lack of coordination Psych Denies behavioral changes Physical exam (Primary Care) Vital Signs: Last Vital Signs BP 126/72 02/19/25 07:59 BMI result Body Mass Index 20.8 Tobacco/Smoking Status: Tobacco use Status Tobacco use date assessed 02/19/25 02/19/25 08:05 Patient Tobacco Use Status Never used Tobacco 02/19/25 07:59 e-Cigarette/Vaping Use Never Used 02/19/25 07:59 PHQ-9: PHQ-9 Score PHQ-9: Total score 0 02/19/25 08:16 Depression Screening Interpretation: Negative Thrive Assessment: Date of Thrive Assessment Date Thrive assessed 02/19/25 02/19/25 07:59 Currently or been in a relationship where the following occur: No concerns reported Resp Effort & Inspection: normal respiratory effort Auscultation: clear to auscultation bilaterally Cardio Jugular venous distension: no JVD Rate: regular rate Rhythm: regular rhythm Heart sounds: S1 normal heart sound present and S2 normal heart sound present Extrem General: Yes full ROM Results AMB Hemoglobin A1c AMB Hemoglobin A1c 6.6 % Last Edit by MAYCO Elise on 02/19/25 08:1 0 Results Reviewed Results Reviewed: Laboratory Last Values Hgb A1c (Clinic) 6.6 % (4.0-6.0) H 02/19/25 07:59 Coding Level of Care Code Est Pt Level 4 (12517) Complex EM visit Add On G2211 Diagnoses Complete heart block I44.2 Hyperlipidemia LDL goal <70 E78.5 Hypothyroidism (acquired) E03.9 Vitamin D deficiency E55.9 Well controlled type 2 diabetes mellitus E11.9 Hypertension, essential I10 Anemia, iron deficiency D50.9 Additional Codes CARLOS-7 Assessment Billing - CARLOS-7 Assessment Tool: CARLOS-7 Assessment 09341 ([id number]) PHQ-9 - 39916 - PHQ-9 Billing: Yes ([id number]) Time Spent (min) 23 Assessment & Plan Assessment & Plan (1) Complete heart block: Code(s): I44.2 - Atrioventricular block, complete Category: Medical (2) Hyperlipidemia LDL goal <70: Code(s): E78.5 - Hyperlipidemia, unspecified Category: Medical (3) Hypothyroidism (acquired): Code(s): E03.9 - Hypothyroidism, unspecified Category: Medical (4) Vitamin D deficiency: Code(s): E55.9 - Vitamin D deficiency, unspecified Category: Medical (5) Well controlled type 2 diabetes mellitus: Code(s): E11.9 - Type 2 diabetes mellitus without complications Category: Medical (6) Hypertension, essential: Code(s): I10 - Essential (primary) hypertension Category: Medical (7) Anemia, iron deficiency: Code(s): D50.9 - Iron deficiency anemia, unspecified Category: Medical Plan Chelsea's follow-up concentrated on managing her chronic health issues while ensuring post-pacemaker recuperation. Recognizing the complete heart block lead to a pivotal pacemaker intervention, we reaffirmed the current medication regimen for diabetes, hypertension, hypothyroidism, and hyperlipidemia as these conditions are stable. Upcoming evaluation includes fasting blood work for glucose, cholesterol, and thyroid function within three months. Her adherence to vaccination protocols is commendable. Rescheduling her eye and dental evaluations is recommended as her hypertension is now controlled. Patient was informed and verbally consented to the use of an ambient scribe for clinic note documentation during this visit. I reviewed the current state of Chelsea's chronic ailments and her recent surgical intervention history, including the pacemaker placement, with the patient. We emphasized the importance of adhering to her prescribed medication regimen, given her stable diabetes and hypertension. The potential benefits and necessity of the previous cardiac intervention were reaffirmed as preventive against future cardiac events. While discussing the additional lab work required for monitoring her thyroid and metabolic control, I highlighted the flexibility within a three-month period for completion. Scheduled dental and eye health evaluations were also revisited, to be arranged now that her blood pressure has stabilized, reinforcing the comprehensive approach to her health maintenance. Orders: Orders Lipid Panel Today E78.5 - Hyperlipidemia, unspecified Vitamin B12 and Folate Today E53.8 - Deficiency of other specified B group vitamins Comprehensive [place]. Panel Fast 6 Months E11.9 - Type 2 diabetes mellitus without complications AMB Hemoglobin A1c Today E11.9 - Type 2 diabetes mellitus without complications Microalbumin, Random (w Creat) Today R80.9 - Proteinuria, unspecified Vitamin D 25-OH Total Today E55.9 - Vitamin D deficiency, unspecified Comprehensive [place]. Panel Fast Today E11.9 - Type 2 diabetes mellitus without complications Thyroid Stimulating Hormone Today E03.9 - Hypothyroidism, unspecified Lipid Panel 6 Months E78.5 - Hyperlipidemia, unspecified Thyroid Stimulating Hormone 6 Months E03.9 - Hypothyroidism, unspecified Patient Instructions: - Continue all current medications as prescribed. - Schedule blood work within three months, ensuring an 8-hour fasting before tests. - Arrange for dental and eye appointments, now that blood pressure is controlled. - Look out for any signs of infection or complications post-pacemaker placement. - Maintain a healthy diet and lifestyle, limiting alcohol consumption to special occasions. - Contact the clinic if any new symptoms or health concerns arise.
[2025-02-19 07:59] VITALS: BP 126/72; BMI 20.8
== END 2025-02-19 08:25 | disposition home or self-care (01) ==
LOC: HO.HMCH 07:55
PROVIDERS: PCP Internal Medicine; Visit Provider Internal Medicine
DX: E11.69 Type 2 diabetes mellitus with other specified complication (principal); I44.2 Atrioventricular block, complete; E78.5 Hyperlipidemia, unspecified; E03.9 Hypothyroidism, unspecified; E55.9 Vitamin D deficiency, unspecified; I10 Essential (primary) hypertension; D50.9 Iron deficiency anemia, unspecified

== ENCOUNTER → 2025-02-19 07:54 | Outpatient (BNVA) | payer MEDICARE, MEDICAID, SELFPAY | PROVIDERS: PCP Internal Medicine; Visit Provider Internal Medicine | DX: I44.2 Atrioventricular block, complete (principal); E78.5 Hyperlipidemia, unspecified; E03.9 Hypothyroidism, unspecified; E55.9 Vitamin D deficiency, unspecified; E11.9 Type 2 diabetes mellitus without complications; I10 Essential (primary) hypertension; D50.9 Iron deficiency anemia, unspecified | CPT/HCPCS: 83036; 96127; 99212 ==

== ENCOUNTER 2025-03-19 07:35 | Outpatient (REF) | payer MEDICARE, MEDICAID, SELFPAY ==
[2025-03-19 10:45] LABS: Alanine Aminotransferase 62 U/L (0-31); Albumin Level 4.2 g/dL (3.5-5.0); Alkaline Phosphatase 114 U/L (39-117); Anion Gap 10 (12-20); Aspartate Amino Transferase 60 U/L (5-31); Bilirubin Total 0.7 mg/dL (0.0-1.0); Blood Urea Nitrogen 13 mg/dL (9-16); Calcium 9.9 mg/dL (8.4-10.2); Carbon Dioxide 25 mmol/L (22-29); Chloride 107 mmol/L (96-108); Cholesterol 184 mg/dL (<200); Estimated Glomerular Filt Rate > 60; Glucose Fasting 125 mg/dL (60-99); HDL Cholesterol 66 mg/dL (>40); LDL Cholesterol Calculated 106 mg/dL (<100); Potassium 4.2 mmol/L (3.3-5.1); Sodium 138 mmol/L (135-145); Total Protein 7.9 g/dL (6.5-8.0); Triglycerides 64 mg/dL (<150)
[2025-03-19 10:57] LABS: Thyroid Stimulating Hormone 0.66 uIU/mL (0.32-4.0); Vitamin D 25-OH Total 39.3 ng/mL (>30)
[2025-03-19 11:09] LABS: Folate > 20.0 ng/mL (> or = 4.0); Vitamin B12 1419 pg/mL (200-900)
== END 2025-03-19 07:36 | disposition home or self-care (01) ==
LOC: HO.10HDL 07:35
PROVIDERS: Visit Provider Internal Medicine
DX: E55.9 Vitamin D deficiency, unspecified (principal); E11.9 Type 2 diabetes mellitus without complications; E78.5 Hyperlipidemia, unspecified; E53.8 Deficiency of other specified B group vitamins; E03.9 Hypothyroidism, unspecified
CPT/HCPCS: 36415; 80053; 80061; 82306; 82607; 82746; 84443

== ENCOUNTER 2025-03-24 08:57 | Outpatient (REF) | payer MEDICARE, MEDICAID, SELFPAY ==
[2025-03-24 10:57] LABS: Creatinine Urine 81.16 mg/dL; Microalbum/Creatinine Ratio Ur 28.3 ug/mg cr (<30)
== END 2025-03-24 08:58 | disposition home or self-care (01) ==
LOC: HO.10HDLNP 08:57
PROVIDERS: Visit Provider Internal Medicine
DX: R80.9 Proteinuria, unspecified (principal)
CPT/HCPCS: 82043; 82570

== ENCOUNTER 2025-05-07 09:16 | Outpatient (REF) | payer MEDICARE, MEDICAID, SELFPAY ==
[2025-05-07 14:18] LABS: Anion Gap 16 (12-20); Blood Urea Nitrogen 14 mg/dL (9-16); Calcium 9.4 mg/dL (8.4-10.2); Carbon Dioxide 20 mmol/L (22-29); Chloride 109 mmol/L (96-108); Estimated Glomerular Filt Rate > 60; Potassium 4.1 mmol/L (3.3-5.1); Sodium 141 mmol/L (135-145)
== END 2025-05-07 09:17 | disposition home or self-care (01) ==
LOC: HO.10HDL 09:16
PROVIDERS: Visit Provider Internal Medicine Hypertension Specialist
DX: E83.52 Hypercalcemia (principal); I10 Essential (primary) hypertension
CPT/HCPCS: 36415; 80048; 82306

== ENCOUNTER 2025-05-12 09:56 | Outpatient (AMB) | payer MEDICARE, MEDICAID, SELFPAY ==
--- NOTE | 2025-05-12 10:06 | HO.NEPHOV ---
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 Allergies No Known Allergies Allergy (Verified 05/12/25 10:13) Medication List - Last Reconciled 05/12/25 by Duglas Christianson MD atorvastatin 40 mg PO BEDTIME 90 days blood pressure monitor As directed levothyroxine 50 mcg PO DAILY 90 days lisinopril 5 mg PO DAILY metformin ER 750 mg PO DAILY 3 months multivitamin with iron (Tab-A-Joselo/Iron tablet) 1 tab PO DAILY omega-3 fatty acids-fish oil 300-1,000 mg 1 cap PO DAILY zinc gluconate 50 mg PO DAILY Do you need a note to return to daycare/school/sports/work: No HPI Comments Details: 73-year-old female with diabetes mellitus type 2, hypertension, hypothyroidism, dyslipidemia and h/o vitamin-D who has been on cholecalciferol was recently found to have hypercalcemia with a calcium of 10.9 and hence this referral. She has a history of hypertension. Blood pressure has been well controlled. She also has essentially normal renal function with a baseline creatinine of less than 1.0 mg/dL. Today she has no specific complaints. No headache nausea vomiting. No polyuria polydipsia. No edema no fever no rash. No weight loss. All other systems were reviewed 03/18/2024. Chelsea is here for follow-up. No new complaints. Lab results are pending 03/25/2024. Stopped for blood pressure check no complaints 07/18/24 Overall doing OK ;Not on any calcium supplements or Vit D;Ca down to 10.5; SPEP negative ;iPTH 454/25 01/14/25 s/p PAcemaker. No new issues [facility] Medical History (Updated 05/12/25 @ 10:15 by Nieves Cedillo MA) Pacemaker Surgical History History of tonsillectomy and adenoidectomy Family History Father Multiple myeloma Mother Lung cancer Sister In good health Social History Household Members: Family Housing: House Alcohol intake: current Alcohol intake frequency: holidays/special occasions only Alcohol type: wine and hard liquor Patient Tobacco Use Status: Never used Tobacco e-Cigarette/Vaping Use: Never Used Second Hand Smoke Exposure: No service: No Current occupational status: retired and disabled Current occupational exposures/hazards: No Gender identity: Female Cognitive needs: Yes Hearing needs: No Vision needs: Yes Physical Exam Vital Signs: Last Vital Signs Pulse 73 05/12/25 10:10 BP 134/71 05/12/25 10:10 Pulse Ox 98 05/12/25 10:10 Oxygen Delivery Method Room Air 05/12/25 10:10 BMI result Body Mass Index 20.0 Const General: comfortable; No acute distress Orientation/consciousness: patient oriented x3 Eyes General: appearance normal, both eyes and all related structures Visual Talavera: normal visual talavera by confrontation Neck Neck: Yes supple and Yes no JVD Resp Effort & Inspection: normal respiratory effort and respiratory effort not decreased Cardio Palpation: no palpable S3 and no palpable S4 Heart sounds: no rubs GI Inspection: Yes normal to inspection Palpation (GI): Soft to palpation Percussion: Yes normal to percussion Auscultation: normal bowel sounds General: Yes no CVA tenderness Back/Spine/Pelvis Back: no CVA tenderness Skin General skin exam: no petechiae and no purpura Neuro General: patient oriented x3 and no focal motor deficits Extrem General: No clubbing and No edema Results Reviewed Nephrology Results: Sodium, (135-145) 141 mmol/L 05/07/25 Potassium, (3.3-5.1) 4.1 mmol/L 05/07/25 Chloride, (96-108) 109 mmol/L H 05/07/25 Carbon Dioxide, (22-29) 20 mmol/L L 05/07/25 BUN, (9-16) 14 mg/dL 05/07/25 Creatinine, (0.5-1.4) 0.79 mg/dL 05/07/25 Calcium, (8.4-10.2) 9.4 mg/dL 05/07/25 Urine Creatinine 81.16 mg/dL 03/24/25 Assessment & Plan Assessment & Plan (1) Hypercalcemia: Code(s): E83.52 - Hypercalcemia Category: Medical (2) Vitamin D deficiency: Code(s): E55.9 - Vitamin D deficiency, unspecified Category: Medical (3) Hypertension, essential: Code(s): I10 - Essential (primary) hypertension Category: Medical Plan 74-year-old woman with a history of hypertension with mild hypercalcemia. Vitamin-D level was elevated 131. I suspect she is hypercalcemia primarily due to excessive vitamin-D intake. For now I will discontinue vitamin-D supplementation. SPEP negative repeat PTH did not show MCGP Repeat serum calcium is in the normal range after lowering vitamin-D supplementation. Monitor vitamin-D levels prior to next visit and restart if needed. Blood pressure is well controleld No changes in medication Orders: Orders Basic Metabolic Panel 1 Year I10 - Essential (primary) hypertension Coding Level of Care Code Est Pt Level 4 (03867) Diagnoses Hypercalcemia E83.52 Vitamin D deficiency E55.9 Hypertension, essential I10
[2025-05-12 10:10] VITALS: BP 134/71; PULSE 73; O2SAT 98
== END 2025-05-12 10:27 | disposition home or self-care (01) ==
LOC: HO.HKA 09:57
PROVIDERS: PCP Internal Medicine; Visit Provider Internal Medicine Hypertension Specialist
DX: E83.52 Hypercalcemia (principal); I10 Essential (primary) hypertension; E55.9 Vitamin D deficiency, unspecified
CPT/HCPCS: 99214

== ENCOUNTER → 2025-05-12 09:56 | Outpatient (BNVA) | payer MEDICARE, MEDICAID, SELFPAY | PROVIDERS: PCP Internal Medicine; Visit Provider Internal Medicine Hypertension Specialist | DX: E83.52 Hypercalcemia (principal); E55.9 Vitamin D deficiency, unspecified; I10 Essential (primary) hypertension | CPT/HCPCS: 99212 ==

== ENCOUNTER 2025-08-13 08:00 | Outpatient (REF) | payer MEDICARE, MEDICAID, SELFPAY ==
[2025-08-13 11:21] LABS: Alanine Aminotransferase 64 U/L (0-31); Albumin Level 4.3 g/dL (3.5-5.0); Alkaline Phosphatase 125 U/L (39-117); Anion Gap 10 (12-20); Aspartate Amino Transferase 59 U/L (5-31); Blood Urea Nitrogen 19 mg/dL (9-16); Calcium 9.8 mg/dL (8.4-10.2); Carbon Dioxide 27 mmol/L (22-29); Chloride 109 mmol/L (96-108); Cholesterol 176 mg/dL (<200); Estimated Glomerular Filt Rate > 60; HDL Cholesterol 69 mg/dL (>40); Potassium 4.1 mmol/L (3.3-5.1); Sodium 142 mmol/L (135-145); Total Protein 8.5 g/dL (6.5-8.0); Triglycerides 41 mg/dL (<150)
[2025-08-13 11:24] LABS: Thyroid Stimulating Hormone 3.18 uIU/mL (0.32-4.0)
== END 2025-08-13 08:01 | disposition home or self-care (01) ==
LOC: HO.10HDL 08:00
PROVIDERS: Referring Provider Internal Medicine Hypertension Specialist; Visit Provider Internal Medicine
DX: E78.5 Hyperlipidemia, unspecified (principal); E03.9 Hypothyroidism, unspecified; E11.9 Type 2 diabetes mellitus without complications
CPT/HCPCS: 36415; 80053; 80061; 84443

== ENCOUNTER 2025-08-21 08:09 | Outpatient (AMB) | payer MEDICARE, MEDICAID, SELFPAY ==
[2025-08-21 08:17] VITALS: BP 180/118; PULSE 83; TEMP 36.3; BMI 19.6
--- NOTE | 2025-08-21 08:17 | MHC.PC.OV ---
Vital Signs 08/21/25 08:17 08/21/25 08:36 Height 4 ft 8 in Weight 87 lb 4 oz BMI 19.6 BP 180/118 H 145/80 H Blood Pressure Location Lt brachial Lt brachial Position Sitting Sitting Pulse 83 Pulse Source Pulse Oximeter Temp 97.3 F Temp Source Temporal Artery Scan Oxygen Delivery Method Room Air Oxygen Flow Rate 96 Intake Visit Reasons: 6 month follow up DM Intake Note: Patient here for a follow up DM Visual Manager Required: No Accompanied by: Sister Allergies No Known Allergies Allergy (Verified 08/21/25 08:37) Medication List - Last Reconciled 08/21/25 by Yenni Bentley MD atorvastatin 40 mg PO BEDTIME 90 days blood pressure monitor As directed levothyroxine 50 mcg PO DAILY 90 days lisinopril 5 mg PO DAILY metformin ER 750 mg PO DAILY 3 months multivitamin with iron (Tab-A-Joselo/Iron tablet) 1 tab PO DAILY omega-3 fatty acids-fish oil 300-1,000 mg 1 cap PO DAILY zinc gluconate 50 mg PO DAILY Tobacco use date assessed: 08/21/25 Fall risk assessment: No Falls in past year Last assessed Fall Risk: 02/19/25 Dental Screening Dental Screen Date: 08/21/25 Did you have a dental visit in the last 12 months?: No Did you have a dental problem in the last 6 months where you did not have access to dental care?: No Was dental information given to patient?: Patient has dentist HPI HPI Comments History of Present Illness Details The patient is a 75-year-old female presenting for a follow-up on chronic conditions. She has no known allergies. Current medications include atorvastatin 40 mg for hyperlipidemia, levothyroxine 50 mcg for hypothyroidism, lisinopril 5 mg for hypertension, and metformin 750 mg once daily. She also takes multivitamins, omega-3, and zinc. She is compliant with her medications, having taken them today. In 2023, the patient had a positive Cologuard test. A subsequent colonoscopy was aborted when EKG revealed a low heart rate and a complete heart block. An EKG in January confirmed normal sinus rhythm with a complete heart block, and she has since had a pacemaker implanted. Recent lab work showed good kidney function, a blood sugar of 127, well-controlled cholesterol, and normal thyroid function. However, lab results revealed mildly elevated liver enzymes, consistent with prior levels, and elevated total protein, which has shown fluctuation in the past. 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 For preventative care, she has received her flu shot and COVID-19 vaccine for this year. [facility] Medical History Pacemaker Surgical History History of tonsillectomy and adenoidectomy Family History Father Multiple myeloma Mother Lung cancer Sister In good health Social History Household Members: Family Housing: House Alcohol intake: current Alcohol intake frequency: holidays/special occasions only Alcohol type: wine and hard liquor Patient Tobacco Use Status: Never used Tobacco e-Cigarette/Vaping Use: Never Used Second Hand Smoke Exposure: No service: No Current occupational status: retired and disabled Current occupational exposures/hazards: No Gender identity: Female Cognitive needs: Yes Hearing needs: No Vision needs: Yes Questionnaire PHQ-9 Over the last 2 weeks, how often have you been bothered by any of the following problems? 1. Little interest or pleasure in doing things: not at all 2. Feeling down, depressed, or hopeless: not at all 3. Trouble falling or staying asleep, or sleeping too much: not at all 4. Feeling tired or having little energy: not at all 5. Poor appetite or overeating: not at all 6. Feeling bad about yourself - or that you are a failure or have let yourself or your family down: not at all 7. Trouble concentrating on things, such as reading the newspaper or watching television: not at all 8. Moving or speaking so slowly that other people could have noticed. Or the opposite - being so fidgety or restless that you have been moving around a lot more than usual: not at all 9. Thoughts that you would be better off or of hurting yourself in some way: not at all Total score: 0 Depression Screening Interpretation: Negative Depression Screening Done: Yes 95362 - PHQ-9 Billing: Yes Source: Developed by Drs. Leonid Oseguera, Lorena Caceres, Richard Leahy and colleagues, with an educational casey from [employer]. Thrive Questionnaire Date Thrive assessed: 02/12/25 I am a: Parent/Caregiver What is your living situation today?: I have a steady place to live Within the past 12 months, did the food you bought not last and you didn't have the money to get more?: Never true Within the past 12 months, did you worry whether your food would run out before you got money to buy more?: Never true Do you have trouble paying for medicines?: No Do you have trouble getting transportation to medical appointments?: No Do you have trouble paying your heating and electricity bill?: No Do you have trouble taking care of your child, family member or friend?: No Do you have trouble with day-to-day activities such as bathing, preparing meals, shopping, managing finances, etc.?: No Are you currently unemployed and looking for a job?: No Are you interested in more education?: No Please select the resources that you would like help with: None Currently or been in a relationship where the following occur: No concerns reported THRIVE Score: 0 AUDIT C Alcohol Use Questionnaire (AUDIT-C) 1. How often do you have a drink containing alcohol?: Monthly or less 2. How many drinks containing alcohol do you have on a typical day when you are drinking?: 1 or 2 3. How often do you have six or more drinks on one occasion?: Never Total Score: 1 Score Reviewed/Action Taken: No CARLOS-7 AMB Questionnaire CARLOS-7 Date CARLOS - 7 assessed: 02/19/25 Feeling nervous, anxious, or on edge: 0 = Not at all Not being able to stop or control worryin = Not at all Worrying too much about different things: 2 = More than half the days Trouble relaxin = More than half the days Being so restless that it is hard to sit still: 0 = Not at all Becoming easily annoyed or irritable: 0 = Not at all Feeling afraid as if something awful might happen: 0 = Not at all Total CARLOS-7 score (0-4 normal; 5-9 mild; 10-14 moderate; 15-21 severe): 4 Source: Developed by Drs. Leonid Oseguera, Lorena Caceres, Richard Leahy and colleagues, with an educational casey from [employer]. CARLOS-7 Assessment Billing CARLOS-7 Assessment Tool: CARLOS-7 Assessment 98617 Review of Systems Const All systems reviewed & are unremarkable except as noted in HPI and below Card Denies chest pain at rest, Denies chest pain with activity, Denies edema, Denies irregular heart rhythm, Denies claudication, Denies dyspnea, Denies dyspnea on exertion, Denies orthopnea, Denies paroxysmal nocturnal dyspnea and Denies slow heart rate Resp Denies cough, Denies dyspnea and Denies dyspnea on exertion Physical exam (Primary Care) Vital Signs: Last Vital Signs Temp 97.3 F 08/21/25 08:17 Pulse 83 08/21/25 08:17 BP 145/80 H 08/21/25 08:36 Oxygen Delivery Method Room Air 08/21/25 08:17 Oxygen Flow Rate 96 08/21/25 08:17 BMI result Body Mass Index 19.6 Tobacco/Smoking Status: Tobacco use Status Tobacco use date assessed 08/21/25 08/21/25 08:26 Patient Tobacco Use Status Never used Tobacco 08/21/25 08:26 e-Cigarette/Vaping Use Never Used 08/21/25 08:26 PHQ-9: PHQ-9 Score PHQ-9: Total score 0 08/21/25 09:21 Depression Screening Interpretation: Negative Thrive Assessment: Date of Thrive Assessment Date Thrive assessed 02/12/25 08/21/25 08:26 Currently or been in a relationship where the following occur: No concerns reported Resp Effort & Inspection: normal respiratory effort Auscultation: clear to auscultation bilaterally Cardio Jugular venous distension: no JVD Rate: regular rate Rhythm: regular rhythm Heart sounds: S1 normal heart sound present and S2 normal heart sound present Extrem General: Yes full ROM Results AMB Hemoglobin A1c AMB Hemoglobin A1c 5.9 % Last Edit by MAYCO Oneal on 08/21/25 09:21 Results Reviewed Results Reviewed: Laboratory Last Values Hgb A1c (Clinic) 5.9 % (4.0-6.0) 08/21/25 08:40 Coding Level of Care Code Est Pt Level 4 (43589) Complex EM visit Add On G2211 Diagnoses Hypertension, essential I10 Hyperlipidemia LDL goal <70 E78.5 Well controlled type 2 diabetes mellitus E11.9 Hypothyroidism (acquired) E03.9 Transaminitis R74.01 Elevated total protein R77.8 Additional Codes CARLOS-7 Assessment Billing - CARLOS-7 Assessment Tool: CARLOS-7 Assessment 06473 ([id number]) PHQ-9 - 36871 - PHQ-9 Billing: Yes ([id number]) Time Spent (min) 22 Assessment & Plan Assessment & Plan (1) Hypertension, essential: Code(s): I10 - Essential (primary) hypertension Category: Medical (2) Hyperlipidemia LDL goal <70: Code(s): E78.5 - Hyperlipidemia, unspecified Category: Medical (3) Well controlled type 2 diabetes mellitus: Code(s): E11.9 - Type 2 diabetes mellitus without complications Category: Medical (4) Hypothyroidism (acquired): Code(s): E03.9 - Hypothyroidism, unspecified Category: Medical (5) Transaminitis: Code(s): R74.01 - Elevation of levels of liver transaminase levels Category: Medical (6) Elevated total protein: Code(s): R77.8 - Other specified abnormalities of plasma proteins Category: Medical Plan Plan 1. Hypertension The patient's blood pressure was elevated at 145/80 mmHg during the visit. The patient is on a very low dose of lisinopril. The plan is to recheck her blood pressure in three weeks at a nurse visit, with the possibility of increasing the lisinopril dose if the elevation persists. 2. Abnormal Liver Function Tests The patient has mildly elevated liver enzymes, which may be related to her medications. An abdominal ultrasound will be ordered to further evaluate the liver. The atorvastatin will not be discontinued at this time as the elevation is minimal. 3. Hyperproteinemia The patient has a slightly elevated total protein level that has shown fluctuation. To investigate the cause, a protein electrophoresis will be ordered with her next blood work. 4. Colon Cancer Screening The patient had a positive Cologuard test, but the follow-up colonoscopy was aborted due to the discovery of a complete heart block. Now that she has a pacemaker, a referral will be made to proceed with the colonoscopy. 5. Diabetes mellitus type 2 Continue metformin. A1c goal is equal or less than 7%. 6. Hyperlipidemia Continue statins. LDL goal is less than 70. 7. Hypothyroidism Continue levothyroxine. Monitor TSH. Orders: Orders AMB Hemoglobin A1c Today Z13.9 - Encounter for screening, unspecified Microalbumin, Random (w Creat) 6 Months R80.9 - Proteinuria, unspecified Protein Electrophoresis, Serum 6 Months R77.8 - Other specified abnormalities of plasma proteins Hepatitis A,B,C Profile 6 Months R79.89 - Other specified abnormal findings of blood chemistry Thyroid Stimulating Hormone 6 Months E03.9 - Hypothyroidism, unspecified US abdomen doe w elastography Today R74.01 - Elevation of levels of liver transaminase levels Lipid Panel 6 Months E78.5 - Hyperlipidemia, unspecified Comprehensive [place]. Panel Fast 6 Months E78.5 - Hyperlipidemia, unspecified Vitamin D 25-OH Total 6 Months E55.9 - Vitamin D deficiency, unspecified Referrals Gastroenterology Referral R19.5 - Other fecal abnormalities
[2025-08-21 08:36] VITALS: BP 145/80
== END 2025-08-21 08:54 | disposition home or self-care (01) ==
LOC: HO.HMCH 08:10
PROVIDERS: PCP Internal Medicine; Visit Provider Internal Medicine
DX: I10 Essential (primary) hypertension (principal); E78.5 Hyperlipidemia, unspecified; E11.9 Type 2 diabetes mellitus without complications; E03.9 Hypothyroidism, unspecified; R74.01 Elevation of levels of liver transaminase levels; R77.8 Other specified abnormalities of plasma proteins; Z13.9 Encounter for screening, unspecified

== ENCOUNTER → 2025-08-21 08:09 | Outpatient (BNVA) | payer MEDICARE, MEDICAID, SELFPAY | PROVIDERS: PCP Internal Medicine; Visit Provider Internal Medicine | DX: I10 Essential (primary) hypertension (principal); E78.5 Hyperlipidemia, unspecified; E11.9 Type 2 diabetes mellitus without complications; E03.9 Hypothyroidism, unspecified; R74.01 Elevation of levels of liver transaminase levels; R77.8 Other specified abnormalities of plasma proteins | CPT/HCPCS: 83036; 96127; 99212 ==

== ENCOUNTER → 2025-09-12 07:58 | Outpatient (BNVA) | payer MEDICARE, MEDICAID, SELFPAY | PROVIDERS: PCP Internal Medicine | DX: I10 Essential (primary) hypertension (principal) | CPT/HCPCS: 99211 ==